=== PATIENT | female | born 1950 | race Caucasian/White ===

== ENCOUNTER → 2016-05-31 | Outpatient (CLI) | payer MEDICARE ==
[~2016-05-31] MED LIST: AMLO5TAB2 PO; ATOR1TAB18 PO; CELE-19 PO; COUM2.5T11 PO; FLUO20CA8 PO; LEVO100T5 PO; LISI10TA4 PO; LOSA25TA8 PO; LYRI75CA PO; MULTCAP PO; PERC5TAB6 PO; TYLE325T5 PO; VITA200016 PO; vitamin D OR
--- NOTE | 2016-05-31 10:57 | REPMRS ---
Patient History The patient states she had a clinical breast exam in 05/2016. Patient is postmenopausal and has history of other cancer at age 56. Family history of prostate cancer in brother at age 50 or over. 3 benign stereotatic breast biopsies of the left breast, 2008. Reductions of both breasts, 2006. Digital Woman Screen Mammo: May 31, 2016 - Exam #: [id number] Bilateral CC and MLO view(s) were taken. Technologist: Patria Lopez, Technologist Prior study comparison: May 22, 2014, digital woman screen mammo performed at [facility]. April 26, 2013, digital woman screen mammo performed at [facility]. April 04, 2012, digital woman screen mammo performed at [facility]. FINDINGS: There are scattered fibroglandular densities. There has been no change in the appearance of the mammogram from the prior studies. There are three needle biopsy marker clips projecting in the left breast as before. There is a mild amount of scattered fibroglandular density which is fairly symmetric. There is no interval development of dominant mass, architectural distortion, or clustered microcalcification suggestive of malignancy. ASSESSMENT: BI-RADS/ACR category 1 mammogram. Negative. Recommendation Routine screening mammogram in 1 year (for women over age 40). This mammogram was interpreted with the aid of an FDA-approved computer-aided dectection system. Electronically Signed By: Oscra León MD 05/31/16 1043
== END ==
LOC: M WHC 09:32
PROVIDERS: ATTEND Nurse Practitioner Family
DX: Z12.31 Encounter for screening mammogram for malignant neoplasm of breast (principal); Z78.0 Asymptomatic menopausal state; Z92.89 Personal history of other medical treatment; Z80.42 Family history of malignant neoplasm of prostate; Z98.890 Other specified postprocedural states
CPT/HCPCS: G0202; G0463

== ENCOUNTER → 2016-09-30 | Outpatient (REF) | payer MEDICARE | LOC: M LAB REF 12:07 | PROVIDERS: ATTEND Physician Assistant Medical | DX: N30.01 Acute cystitis with hematuria (principal) ==

== ENCOUNTER → 2017-02-10 | Outpatient (REF) | payer MEDICARE ==
[~2017-02-10] MED LIST changes: -ATOR1TAB18 PO; +ATOR80TA59 PO; -CELE-19 PO; +CELE1CAP4 PO; -COUM2.5T11 PO; +COUM2.5T17 PO; +PERC5TAB12 PO; -PERC5TAB6 PO
[2017-02-10 15:10] LABS: ALBUMIN 3.1 GM/DL (3.2-5.2); ALBUMIN/GLOBULIN RATIO 0.84 (1.00-1.93); ALKALINE PHOSPHATASE 98 U/L (45-117); ALT/SGPT 25 U/L (12-78); ANION GAP 6 MEQ/L (8-16); AST/SGOT 12 U/L (15-37); BILIRUBIN,TOTAL 0.3 MG/DL (0.2-1.0); BLOOD UREA NITROGEN 18 MG/DL (7-18); CALCIUM LEVEL 8.7 MG/DL (8.8-10.2); CARBON DIOXIDE LEVEL 27 MEQ/L (21-32); CHLORIDE LEVEL 105 MEQ/L (98-107); CHOLESTEROL LEVEL 153 MG/DL (<200); CREATININE FOR GFR 0.55 MG/DL (0.55-1.02); GLOMERULAR FILTRATION RATE > 60.0 (>45); GLUCOSE, FASTING 110 MG/DL (80-110); POTASSIUM SERUM 4.6 MEQ/L (3.5-5.1); SODIUM LEVEL 138 MEQ/L (136-145); TOTAL PROTEIN 6.8 GM/DL (6.4-8.2); TRIGLYCERIDES LEVEL 244 MG/DL (<150)
== END ==
LOC: M SFHCADAM 08:00
PROVIDERS: ATTEND Physician Assistant
DX: I10 Essential (primary) hypertension (principal); R73.09 Other abnormal glucose; E78.4 Other hyperlipidemia; M13.0 Polyarthritis, unspecified

== ENCOUNTER → 2017-06-08 | Outpatient (REF) | payer MEDICARE ==
[2017-06-08 11:36] LABS: ESTIMATED AVERAGE GLUCOSE 123 MG/DL (60-110); HEMOGLOBIN A1c 5.9 %
[2017-06-08 11:47] LABS: ALBUMIN 3.5 GM/DL (3.2-5.2); ALBUMIN/GLOBULIN RATIO 0.95 (1.00-1.93); ALKALINE PHOSPHATASE 102 U/L (45-117); ALT/SGPT 21 U/L (12-78); ANION GAP 10 MEQ/L (8-16); AST/SGOT 10 U/L (7-37); BILIRUBIN,TOTAL 0.3 MG/DL (0.2-1.0); BLOOD UREA NITROGEN 21 MG/DL (7-18); CALCIUM LEVEL 9.3 MG/DL (8.8-10.2); CARBON DIOXIDE LEVEL 27 MEQ/L (21-32); CHLORIDE LEVEL 104 MEQ/L (98-107); CREATININE FOR GFR 0.54 MG/DL (0.55-1.30); GLOMERULAR FILTRATION RATE > 60.0 (>45); GLUCOSE, FASTING 108 MG/DL (70-100); POTASSIUM SERUM 4.4 MEQ/L (3.5-5.1); SODIUM LEVEL 141 MEQ/L (136-145); TOTAL PROTEIN 7.2 GM/DL (6.4-8.2)
== END ==
LOC: M SFHCADAM 07:49
DX: R73.09 Other abnormal glucose (principal)
CPT/HCPCS: 80053

== ENCOUNTER → 2017-06-21 | Outpatient (CLI) | payer OTHER | LOC: M ADAMS 18:26 | DX: J20.9 Acute bronchitis, unspecified (principal); J45.909 Unspecified asthma, uncomplicated; I27.21 Secondary pulmonary arterial hypertension | CPT/HCPCS: 71046 ==

== ENCOUNTER → 2017-07-10 | Outpatient (REF) | payer OTHER | LOC: M SFHCWAGY 12:04 | DX: Z12.72 Encounter for screening for malignant neoplasm of vagina (principal); Z01.411 Encounter for gynecological examination (general) (routine) with abnormal findings (principal); R87.618 Other abnormal cytological findings on specimens from cervix uteri; Z12.12 Encounter for screening for malignant neoplasm of rectum; Z12.31 Encounter for screening mammogram for malignant neoplasm of breast; Z78.0 Asymptomatic menopausal state; Z85.42 Personal history of malignant neoplasm of other parts of uterus; Z98.890 Other specified postprocedural states | CPT/HCPCS: G0123 ==

== ENCOUNTER → 2017-07-10 | Outpatient (CLI) | payer OTHER | LOC: M WHC 09:30 | DX: Z12.31 Encounter for screening mammogram for malignant neoplasm of breast (principal); Z78.0 Asymptomatic menopausal state; Z85.42 Personal history of malignant neoplasm of other parts of uterus; Z98.890 Other specified postprocedural states | CPT/HCPCS: 77067 ==

== ENCOUNTER → 2018-01-17 | Outpatient (REF) | payer OTHER ==
[2018-01-17 20:29] LABS: MALB URINE SIEMENS 25.5 MG/L
[2018-01-17 20:48] LABS: MAU/CREAT RATIO 20.2 MCG/MG (0.0-30.0)
== END ==
LOC: M SFHCADAM 19:11
DX: E11.9 Type 2 diabetes mellitus without complications (principal)

== ENCOUNTER → 2018-01-17 | Outpatient (REF) | payer OTHER ==
[2018-01-17 14:05] LABS: ALBUMIN 3.3 GM/DL (3.2-5.2); ALBUMIN/GLOBULIN RATIO 0.92 (1.00-1.93); ALKALINE PHOSPHATASE 97 U/L (45-117); ALT/SGPT 22 U/L (12-78); ANION GAP 8 MEQ/L (8-16); AST/SGOT 11 U/L (7-37); BILIRUBIN,TOTAL 0.2 MG/DL (0.2-1.0); BLOOD UREA NITROGEN 22 MG/DL (7-18); CARBON DIOXIDE LEVEL 27 MEQ/L (21-32); CHLORIDE LEVEL 107 MEQ/L (98-107); CHOLESTEROL LEVEL 147 MG/DL (<200); CHOLESTEROL RISK RATIO 3.585 (<5); CREATININE FOR GFR 0.52 MG/DL (0.55-1.30); FREE T4 1.08 NG/DL (0.76-1.46); GLOMERULAR FILTRATION RATE > 60.0 (>45); GLUCOSE, FASTING 92 MG/DL (70-100); HDL CHOLESTEROL 41 MG/DL (>40); LDL CHOLESTEROL 71 MG/DL (<100); NON-HDL-C 106 MG/DL; POTASSIUM SERUM 5.2 MEQ/L (3.5-5.1); SODIUM LEVEL 142 MEQ/L (136-145); THYROID STIMULATING HORMONE 0.227 uIU/ML (0.358-3.740); TOTAL PROTEIN 6.9 GM/DL (6.4-8.2); TRIGLYCERIDES LEVEL 175 MG/DL (<150)
[2018-01-17 15:44] LABS: ESTIMATED AVERAGE GLUCOSE 120 MG/DL (60-110); HEMOGLOBIN A1c 5.8 %
== END ==
LOC: M SFHCADAM 07:44
DX: I10 Essential (primary) hypertension (principal); E03.9 Hypothyroidism, unspecified; E11.9 Type 2 diabetes mellitus without complications; E78.4 Other hyperlipidemia
CPT/HCPCS: 84443

== ENCOUNTER → 2018-02-04 | Outpatient (REF) | payer OTHER | LOC: M LAB REF 19:33 | DX: N30.01 Acute cystitis with hematuria (principal) | CPT/HCPCS: 87186 ==

== ENCOUNTER → 2018-03-09 | Outpatient (REF) | payer OTHER ==
[2018-03-09 13:58] LABS: FREE T4 0.94 NG/DL (0.76-1.46); THYROID STIMULATING HORMONE 0.861 uIU/ML (0.358-3.740)
== END ==
LOC: M SFHCADAM 07:59
DX: E03.9 Hypothyroidism, unspecified (principal)
CPT/HCPCS: 84443

== ENCOUNTER 2018-04-13 07:08 | Day surgery (SDC) | payer OTHER ==
[~2018-04-13] VITALS: Ht 159 cm; Wt 81.6 kg
[~2018-04-13 07:08] MED LIST changes: -AMLO5TAB2 PO; +AMLO5TAB4 PO; +DITR5TAB PO; +LEVO88TA3 PO; +LOSA25TA33 PO; -LOSA25TA8 PO; +MELO15TA28 PO; +METF500T13 PO; +VICT18IN SC
[2018-04-13] MEDS ORDERED: NS 1,000 ML IV ONE (07:45)
[2018-04-13] MEDS ORDERED: PROPOFOL 200 MG/20 ML VIAL As Ordered ONE ×2 (08:16→08:35)
--- NOTE | 2018-04-13 08:36 | ROOR ---
Patient Name: Aleja Lopez Procedure Date: 04/13/2018 8:15 AM Date of : 1950 Age: 67 Room: [facility] Gender: Female Note Status: Finalized Procedure: Total Colonoscopy to Cecum Indications: High risk colon cancer surveillance: Personal history of adenoma with villous component Providers: Bobby Vallejo MD Referring MD: LEONARD Horvath Requesting Provider: Medicines: Monitored Anesthesia Care Complications: No immediate complications. Procedure: Pre-Anesthesia Assessment: - The heart rate, respiratory rate, oxygen saturations, blood pressure, adequacy of pulmonary ventilation, and response to care were monitored throughout the procedure. The Colonoscope was introduced through the anus and advanced to the cecum, identified by appendiceal orifice and ileocecal valve. The colonoscopy was performed without difficulty. The patient tolerated the procedure well. The quality of the bowel preparation was excellent. Findings: The perianal and digital rectal examinations were normal. Non-bleeding internal hemorrhoids were found during retroflexion. The hemorrhoids were small and Grade I (internal hemorrhoids that do not prolapse). Scattered small-mouthed diverticula were found in the recto-sigmoid colon, sigmoid colon and descending colon. The exam was otherwise without abnormality on direct and retroflexion views. Impression: - Non-bleeding internal hemorrhoids. - Diverticulosis in the recto-sigmoid colon, in the sigmoid colon and in the descending colon. - The examination was otherwise normal on direct and retroflexion views. - No specimens collected. - The exam was otherwise normal to the cecum. Recommendation: - Patient has a contact number available for emergencies. The signs and symptoms of potential delayed complications were discussed with the patient. Return to normal activities tomorrow. Written discharge instructions were provided to the patient. - High fiber diet. - Discharge patient to home. - Continue present medications. - Repeat colonoscopy in 5 years for surveillance. - Return to referring physician. - The findings and recommendations were discussed with the patient's family. Bobby Vallejo MD Bobby Vallejo MD 04/13/2018 8:35:53 AM This report has been signed electronically. Number of Addenda: 0 Note Initiated On: 04/13/2018 8:15 AM Estimated Blood Loss: Estimated blood loss: none.
[2018-04-13 08:55] VITALS: BP 111/69
== END 2018-04-13 09:07 | disposition home or self-care (01) ==
LOC: M OPP 07:08
PROVIDERS: ATTEND Internal Medicine Gastroenterology
DX: K64.0 First degree hemorrhoids (principal); K57.30 Diverticulosis of large intestine without perforation or abscess without bleeding; Z86.010 Personal history of colon polyps

== ENCOUNTER → 2018-07-09 | Outpatient (CLI) | payer MEDICARE ==
[~2018-07-09] MED LIST changes: -AMLO5TAB4 PO; +AMLO5TAB6 PO; +LOSA25TA14 PO; -LOSA25TA33 PO
== END ==
LOC: M WHC 08:18
PROVIDERS: ATTEND Nurse Practitioner Family
DX: Z12.31 Encounter for screening mammogram for malignant neoplasm of breast (principal); Z53.8 Procedure and treatment not carried out for other reasons

== ENCOUNTER → 2018-07-09 | Outpatient (CLI) | payer MEDICARE | LOC: M WHC 08:08 | PROVIDERS: ATTEND Physician Assistant | DX: Z13.820 Encounter for screening for osteoporosis (principal); Z78.0 Asymptomatic menopausal state ==

== ENCOUNTER → 2018-08-01 | Outpatient (REF) | payer MEDICARE ==
[2018-08-01 10:52] LABS: ALBUMIN 3.5 GM/DL (3.2-5.2); ALT/SGPT 21 U/L (12-78); BILIRUBIN,TOTAL 0.3 MG/DL (0.2-1.0); BLOOD UREA NITROGEN 21 MG/DL (7-18); CALCIUM LEVEL 8.8 MG/DL (8.8-10.2); CARBON DIOXIDE LEVEL 29 MEQ/L (21-32); CHLORIDE LEVEL 105 MEQ/L (98-107); CREATININE FOR GFR 0.59 MG/DL (0.55-1.30); GLOMERULAR FILTRATION RATE > 60.0 (>45); GLUCOSE, FASTING 99 MG/DL (70-100); SODIUM LEVEL 140 MEQ/L (136-145); TOTAL PROTEIN 7.1 GM/DL (6.4-8.2)
== END ==
LOC: M SFHCADAM 07:41
PROVIDERS: ATTEND Physician Assistant
DX: E11.9 Type 2 diabetes mellitus without complications (principal)

== ENCOUNTER → 2018-08-24 | Outpatient (CLI) | payer MEDICARE ==
--- NOTE | 2018-08-24 10:15 | REP ---
THYROID ULTRASOUND: Real-time sonographic evaluation of the thyroid was performed. Thyroid lobes are normal in size, right slightly larger than left. The right lobe measures 3.7 x 1.0 x 0.7 cm and left lobe 3.9 x 0.8 x 0.5 cm. No cystic or solid nodule is seen. IMPRESSION: No abnormality identified. Electronically Signed by Partha Moraes MD 08/27/2018 01:29 P
== END ==
LOC: M RAD 08:53
PROVIDERS: ATTEND Physician Assistant
DX: R13.10 Dysphagia, unspecified (principal); E07.89 Other specified disorders of thyroid

== ENCOUNTER 2018-09-28 11:07 | Day surgery (SDC) | payer MEDICARE ==
[~2018-09-28] VITALS: Ht 157.5 cm; Wt 84.4 kg
[~2018-09-28 11:07] MED LIST changes: +NS 1,000 ML IV ONE
[2018-09-28] MEDS ORDERED: LIDOCAINE 2% INJ 100 MG/5 ML SDV (FOR ANES.) As Ordered ONE (12:16)
[2018-09-28] MEDS ORDERED: PROPOFOL 200 MG/20 ML VIAL As Ordered ONE (12:16)
--- NOTE | 2018-09-28 13:38 | ROOR ---
Patient Name: Aleja Lopez Procedure Date: 09/28/2018 1:00 PM Date of : 1950 Age: 67 Room: [facility] Gender: Female Note Status: Finalized Procedure: Upper GI endoscopy + Dilatation Indications: Dysphagia Providers: Bobby Vallejo MD Referring MD: LEONARD Horvath Requesting Provider: Medicines: Monitored Anesthesia Care Complications: No immediate complications. Procedure: Pre-Anesthesia Assessment: - The heart rate, respiratory rate, oxygen saturations, blood pressure, adequacy of pulmonary ventilation, and response to care were monitored throughout the procedure. The Endoscope was introduced through the mouth, and advanced to the second part of duodenum. The upper GI endoscopy was accomplished without difficulty. The patient tolerated the procedure well. Findings: The Z-line was regular and was found 40 cm from the incisors. The scope was withdrawn. Dilation was performed with a Cheema dilator with no resistance at 46 Fr. The dilation site was examined following endoscope reinsertion and showed no change. No other significant abnormalities were identified in a careful examination of the stomach. The exam of the duodenum was otherwise normal. The exam was otherwise without abnormality. Impression: - Z-line regular, 40 cm from the incisors. Dilated. - The examination was otherwise normal. - No specimens collected. - The examination was otherwise normal. Recommendation: - Patient has a contact number available for emergencies. The signs and symptoms of potential delayed complications were discussed with the patient. Return to normal activities tomorrow. Written discharge instructions were provided to the patient. - Discharge patient to home. - Follow an antireflux regimen. - Continue present medications. - Return to referring physician. - The findings and recommendations were discussed with the patient's family. Bobby Vallejo MD Bobby Vallejo MD 09/28/2018 1:37:48 PM Electronically signed by Bobby Vallejo MD Number of Addenda: 0 Note Initiated On: 09/28/2018 1:00 PM Estimated Blood Loss: Estimated blood loss: none.
[2018-09-28 13:45] VITALS: BP 135/76
== END 2018-09-28 13:58 | disposition home or self-care (01) ==
LOC: M OPP 11:07
PROVIDERS: ATTEND Internal Medicine Gastroenterology
DX: R13.10 Dysphagia, unspecified (principal)

== ENCOUNTER → 2019-05-03 | Outpatient (REF) | payer MEDICARE ==
[~2019-05-03] MED LIST changes: +FLUO20CA20 PO; -FLUO20CA8 PO; -NS 1,000 ML IV ONE
[2019-05-03 12:57] LABS: HEMATOCRIT 38.2 % (36.0-47.0); MEAN CORPUSCULAR HEMOGLOBIN 26.6 pg (27.0-33.0); MEAN CORPUSCULAR HGB CONC 28.8 g/dl (32.0-36.5); MEAN CORPUSCULAR VOLUME 92.5 fl (80.0-96.0); PLATELET COUNT, AUTOMATED 388 10^3/uL (150-450); RED BLOOD COUNT 4.13 10^6/uL (4.00-5.40); WHITE BLOOD COUNT 8.2 10^3/uL (4.0-10.0)
[2019-05-03 13:22] LABS: HEMOGLOBIN A1c 6.5 %
[2019-05-03 13:42] LABS: ALBUMIN 3.2 GM/DL (3.2-5.2); ALT/SGPT 16 U/L (12-78); BILIRUBIN,TOTAL 0.2 MG/DL (0.2-1.0); BLOOD UREA NITROGEN 22 MG/DL (7-18); CALCIUM LEVEL 8.6 MG/DL (8.8-10.2); CARBON DIOXIDE LEVEL 24 MEQ/L (21-32); CHLORIDE LEVEL 105 MEQ/L (98-107); CHOLESTEROL LEVEL 158 MG/DL (<200); CHOLESTEROL RISK RATIO 3.434 (<5); CREATININE FOR GFR 0.65 MG/DL (0.55-1.30); FREE T4 1.06 NG/DL (0.76-1.46); GLOMERULAR FILTRATION RATE > 60.0 (>39); GLUCOSE, FASTING 111 MG/DL (70-100); HDL CHOLESTEROL 46 MG/DL (>40); LDL CHOLESTEROL 80 MG/DL (<100); NON-HDL-C 112 MG/DL; POTASSIUM SERUM 4.7 MEQ/L (3.5-5.1); SODIUM LEVEL 138 MEQ/L (136-145); TOTAL PROTEIN 6.8 GM/DL (6.4-8.2); TRIGLYCERIDES LEVEL 158 MG/DL (<150)
[2019-05-03 20:05] LABS: CREATININE, URINE 38.5 MG/DL; MALB URINE SIEMENS 5.1 MG/L; MAU/CREAT RATIO 13.2 MCG/MG (0.0-30.0)
== END ==
LOC: M SFHCADAM 08:01
PROVIDERS: ATTEND Physician Assistant
DX: E11.9 Type 2 diabetes mellitus without complications (principal); I10 Essential (primary) hypertension; E03.9 Hypothyroidism, unspecified; E78.49 Other hyperlipidemia

== ENCOUNTER 2019-06-26 10:19 | Emergency (ER) | payer MEDICARE ==
[2019-06-26] MEDS ORDERED: NAPR220C14 PO (10:35)
[2019-06-26] MEDS ORDERED: NS 500 ML IV ONE (11:00)
[2019-06-26] MEDS ORDERED: MORPHINE 4 MG/ML 1ML VIAL/SYRINGE (J2270) IV ONE (11:00)
[2019-06-26] MEDS ORDERED: MORPHINE 4 MG/ML 1ML VIAL/SYRINGE (J2270) IM ONE (11:30)
--- NOTE | 2019-06-26 11:37 | REP ---
CT study of the cervical spine without contrast: History: Trauma. Technique: Helical scanning is acquired and overlapping 2 mm high resolution axial images were generated and reviewed at bone and soft tissue window settings. Coronal and sagittal multiplanar re-formations images are generated. CT findings: There is no evidence of cervical spine element fracture. No skull base fracture is seen. Cervical vertebral body heights are preserved. Alignment is normal. There is straightening of the normal cervical lordosis. Degenerative disc disease is noted most pronounced at C5-6 and C6-7. There are osteoarthritic changes at C1-2. Facet joints are normally aligned bilaterally at each cervical level on multiplanar re-formations images. There is no evidence of intraspinal or paraspinal hematoma. No extra vertebral abnormality is seen. Carotid artery vascular calcifications noted. Impression: Degenerative spondylosis changes. Otherwise negative CT study of the cervical spine without contrast. No fracture seen. Electronically Signed by Raimundo León MD 06/26/2019 11:28 A
--- NOTE | 2019-06-26 12:01 | REP ---
CT LUMBAR SPINE WITHOUT CONTRAST: HISTORY: Trauma. FINDINGS: Lumbar vertebral body heights are preserved. Alignment is normal. There is no evidence of fracture or collapse. There is no evidence of spondylolysis or spondylolisthesis. There are degenerative disc changes at L2-3 and L3-4 and to some degree L5-S1 and L4-5. There is no evidence of posterior element fracture. There is facet hypertrophy bilaterally at L5-S1 and to a lesser extent at L4-5. No intraspinal or paraspinal hematoma is appreciated. There is central disc bulging at L4-5. No significant extra spinal abnormality is seen. The visualized sacrum appears intact. IMPRESSION: No traumatic abnormality noted. Degenerative spondylosis changes. Electronically Signed by Raimundo León MD 06/26/2019 07:35 P
--- NOTE | 2019-06-26 12:05 | REP ---
CT BRAIN WITHOUT CONTRAST: CT brain performed without IV contrast. There is mild atrophy. There is no midline shift or mass effect. There are minor periventricular lucencies in the white matter compatible with mild chronic small vessel ischemic changes. There is no acute intracranial hemorrhage or extra-axial fluid collection. No skull fracture is seen. Visualized paranasal sinuses demonstrate no abnormal opacification. IMPRESSION: No evidence of acute bleed or fracture. Electronically Signed by Partha Moraes MD 06/26/2019 03:26 P
[2019-06-26 14:00] VITALS: BP 112/59
[2019-06-26] MEDS ORDERED: ONDA4TAB6 PO (14:07)
--- NOTE | 2019-06-26 14:38 | REP ---
RIGHT HUMERUS, TWO VIEWS: There is no evidence of an acute fracture, dislocation or intrinsic bone disease. IMPRESSION: No fracture or dislocation. Electronically Signed by Partha Moraes MD 06/26/2019 03:26 P
--- NOTE | 2019-06-26 14:41 | REP ---
RIGHT FEMUR AP AND LATERAL: AP and lateral views of the right femur. There is no acute fracture or dislocation. Total knee prosthesis is noted in place, in position with no abnormal adjacent osseous disruption. IMPRESSION: No acute fracture or dislocation. Electronically Signed by Partha Moraes MD 06/26/2019 03:27 P
== END 2019-06-26 14:15 | disposition home or self-care (01) ==
LOC: EDBD 10:19 → M ED 10:19
DX: R51 Headache (principal); S40.021A Contusion of right upper arm, initial encounter; S80.11XA Contusion of right lower leg, initial encounter; W10.8XXA Fall (on) (from) other stairs and steps, initial encounter; Y92.018 Other place in single-family (private) house as the place of occurrence of the external cause; Z79.899 Other long term (current) drug therapy; Z79.890 Hormone replacement therapy; Z79.84 Long term (current) use of oral hypoglycemic drugs; J30.89 Other allergic rhinitis; Z91.018 Allergy to other foods
CPT/HCPCS: 70450; 72125; 72131; 73060; 73552; 96361; 96374; 99284; J2270

== ENCOUNTER → 2020-02-20 | Outpatient (REF) | payer MEDICARE ==
[~2020-02-20] MED LIST changes: +AMLO1TAB24 PO; -AMLO5TAB6 PO; +NAPR220C14 PO; +ONDA4TAB6 PO
[2020-02-20 13:02] LABS: HEMOGLOBIN A1c 6.3 %
[2020-02-20 13:23] LABS: ALBUMIN 3.3 GM/DL (3.2-5.2); ALT/SGPT 17 U/L (12-78); BILIRUBIN,TOTAL 0.3 MG/DL (0.2-1.0); BLOOD UREA NITROGEN 17 MG/DL (7-18); CALCIUM LEVEL 9.8 MG/DL (8.8-10.2); CARBON DIOXIDE LEVEL 29 MEQ/L (21-32); CHLORIDE LEVEL 105 MEQ/L (98-107); CREATININE FOR GFR 0.63 MG/DL (0.55-1.30); GLOMERULAR FILTRATION RATE > 60.0 (>39); GLUCOSE, FASTING 99 MG/DL (70-100); POTASSIUM SERUM 5.1 MEQ/L (3.5-5.1); SODIUM LEVEL 138 MEQ/L (136-145); TOTAL PROTEIN 7.3 GM/DL (6.4-8.2)
== END ==
LOC: M SFHCADAM 08:11
PROVIDERS: ATTEND Physician Assistant
DX: E11.9 Type 2 diabetes mellitus without complications (principal)

== ENCOUNTER → 2020-04-02 | Outpatient (REF) | payer MEDICARE ==
[2020-04-02 14:36] LABS: C REACTIVE PROTEIN QUANTITATIV 1.97 MG/DL (0.00-0.30); FOLATE > 24.0 NG/ML; VITAMIN B12 LEVEL 276 PG/ML
== END ==
LOC: M SFHCADAM 08:54
PROVIDERS: ATTEND Physician Assistant
DX: R51.9 Headache, unspecified (principal)

== ENCOUNTER 2020-04-29 22:28 | Emergency (ER) | payer MEDICARE ==
[~2020-04-29] VITALS: Ht 157.5 cm; Wt 83.6 kg
[2020-04-29] MEDS ORDERED: PERCOCET 5MG/325MG TAB PO ONE (23:00)
[2020-04-30] MEDS ORDERED: NORC1TAB7 PO (00:04)
--- NOTE | 2020-04-30 00:08 | REPVR ---
PROCEDURE INFORMATION: Exam: XR Left Knee Exam date and time: 04/29/2020 10:53 PM Age: 69 years old Clinical indication: Other: Fall TECHNIQUE: Imaging protocol: XR Left knee. Views: 4 or more views. COMPARISON: CR Knee, Ap, Lat 07/20/2015 12:43 PM FINDINGS: Bones/joints: Frontal and lateral views demonstrate appropriate alignment of the knee, with cemented arthroplasty components appropriately positioned. No abnormal lucency at the interface between hardware and poarch bone. No periprosthetic fracture. Soft tissues: Mild subcutaneous soft tissue swelling anteriorly. IMPRESSION: No acute fracture, osseous malalignment or periprosthetic complication Electronically signed by: Emil Weeks On 04/30/2020 00:08:38 AM
[2020-04-30] MEDS ORDERED: NORCO 5/325MG TABLET (BULK FOR ED) PO ONE (00:15)
[2020-04-30 00:32] VITALS: BP 130/71
== END 2020-04-30 00:42 | disposition home or self-care (01) ==
LOC: M ED 22:28
DX: S83.92XA Sprain of unspecified site of left knee, initial encounter (principal); W18.30XA Fall on same level, unspecified, initial encounter; Y92.098 Other place in other non-institutional residence as the place of occurrence of the external cause; Y93.01 Activity, walking, marching and hiking; Y99.8 Other external cause status; Z98.890 Other specified postprocedural states; Z96.653 Presence of artificial knee joint, bilateral; I10 Essential (primary) hypertension; E07.9 Disorder of thyroid, unspecified; Z91.048 Other nonmedicinal substance allergy status; Z91.018 Allergy to other foods; Z79.899 Other long term (current) drug therapy; Z79.84 Long term (current) use of oral hypoglycemic drugs

== ENCOUNTER → 2020-06-04 | Outpatient (CLI) | payer MEDICARE ==
[~2020-06-04] MED LIST changes: +LISI10TA22 PO; -LISI10TA4 PO; +NORC1TAB7 PO
--- NOTE | 2020-06-04 14:27 | REP ---
INDICATION: PRESENCE OF LT ART KNEE JOINT. COMPARISON: Comparison CT study May 12, 2020. Comparison radiographs April 29, 2020. TECHNIQUE: 22.0 mCi of technetium 99 M MDP is injected and 3 phase imaging of the knees is acquired in the usual fashion. FINDINGS: Anterior and posterior flow study shows an area of medial hyperemia in the region of the left knee distal femoral condyle. Blood pool images demonstrate a curvilinear area of intensely increased uptake in the medial femoral condyle of the left knee. Delayed scan images demonstrate intense uptake in the medial femoral condyle and some fairly intense uptake in the region of the fibular head or proximal tibiofibular joint. The medial uptake corresponds with the fracture fragment seen along the medial femoral condyle on CT study. Photopenia associated with bilateral knee arthroplasty components are seen. No other abnormal focal uptake. IMPRESSION: Focally increased uptake in all 3 phases of the study in the medial femoral condyle region of the left knee corresponding with the site of the fracture fragments seen on CT study. There is also increased uptake in the proximal fibular head or tibiofibular articulation. Also left-sided. Photopenia associated with bilateral knee arthroplasty components. <Electronically signed by Oscar León > 06/04/20 [id number]
== END ==
LOC: M RAD 08:07
PROVIDERS: ATTEND Physician Assistant
DX: Z96.652 Presence of left artificial knee joint (principal)
CPT/HCPCS: 78315; A9503

== ENCOUNTER → 2020-08-12 | Outpatient (CLI) | payer MEDICARE ==
--- NOTE | 2020-08-12 12:08 | REPMRS ---
Patient History The patient states she had a clinical breast exam in 07/2020 Family history of prostate cancer at age 50 or over in brother. 3 benign stereotatic breast biopsies of the left breast, 2008. Reductions of both breasts, 2006. Digital Woman Screen Mammo: August 12, 2020 - Exam #: [id number] Bilateral CC and MLO view(s) were taken. Technologist: Deena Andujar, Technologist Prior study comparison: July 16, 2018, bilateral digital mammo screening bilat, performed at [facility]. July 10, 2017, digital woman screen mammo performed at [facility]. May 31, 2016, digital woman screen mammo performed at [facility]. FINDINGS: The breast tissue is almost entirely fat. The Volpara volumetric breast density category is: A. There are 3 needle biopsy marker clips in the left breast.There is a stable well-circumscribed 7 mm nodule inferiorly in the left breast at approximately 6 o'clock unchanged from prior studies. There has been no change in the appearance of the mammogram from the prior studies. There is no interval development of dominant mass, architectural distortion, or grouped microcalcification typical of malignancy. 3-D tomosynthesis shows no additional findings. Assessment: BI-RADS/ACR category 2 mammogram. Benign Findings. Recommendation Routine screening mammogram of both breasts in 1 year (for women over age 40). This patient's [facility] Lifetime Breast Cancer RIsk is estimated at 4.3 %. This mammogram was interpreted with the aid of an FDA-approved computer-aided dectection system. Electronically Signed By: Oscar León MD 08/12/20 7586
== END ==
LOC: M WHC 07:59
PROVIDERS: ATTEND Nurse Practitioner Women's Health
DX: Z12.31 Encounter for screening mammogram for malignant neoplasm of breast (principal); Z86.018 Personal history of other benign neoplasm; Z98.890 Other specified postprocedural states; N63.25 Unspecified lump in the left breast, overlapping quadrants

== ENCOUNTER 2020-12-19 12:48 | Emergency (ER) | payer MEDICARE ==
[~2020-12-19] VITALS: Ht 157.5 cm; Wt 84.8 kg
[2020-12-19 12:49] VITALS: BP 128/64
[2020-12-19] MEDS ORDERED: ACETAMINOPHEN 325 MG TAB PO ONE (15:15)
[2020-12-19] MEDS ORDERED: METH-1164 PO (15:19)
[2020-12-19] MEDS ORDERED: methocarbamoL 500 MG TAB PO ONE (15:25)
== END 2020-12-19 15:56 | disposition home or self-care (01) ==
LOC: M ED 12:48
DX: S43.421A Sprain of right rotator cuff capsule, initial encounter (principal); S46.011A Strain of muscle(s) and tendon(s) of the rotator cuff of right shoulder, initial encounter; R07.89 Other chest pain; X50.0XXA Overexertion from strenuous movement or load, initial encounter; Y92.9 Unspecified place or not applicable; Y93.89 Activity, other specified; Y99.9 Unspecified external cause status; Z79.899 Other long term (current) drug therapy; Z91.89 Other specified personal risk factors, not elsewhere classified; Z91.018 Allergy to other foods

== ENCOUNTER → 2021-02-15 | Outpatient (REF) | payer MEDICARE ==
[~2021-02-15] MED LIST changes: +METH-1164 PO
[2021-02-15 14:08] LABS: ALBUMIN 3.2 GM/DL (3.2-5.2); ALT/SGPT 19 U/L (12-78); BILIRUBIN,TOTAL 0.2 MG/DL (0.2-1.0); BLOOD UREA NITROGEN 21 MG/DL (7-18); CALCIUM LEVEL 9.3 MG/DL (8.8-10.2); CARBON DIOXIDE LEVEL 28 MEQ/L (21-32); CHLORIDE LEVEL 104 MEQ/L (98-107); CHOLESTEROL LEVEL 159 MG/DL (<200); CHOLESTEROL RISK RATIO 3.613 (<5); CREATININE FOR GFR 0.62 MG/DL (0.55-1.30); GLOMERULAR FILTRATION RATE > 60.0 (>39); GLUCOSE, FASTING 101 MG/DL (70-100); HDL CHOLESTEROL 44 MG/DL (>40); LDL CHOLESTEROL 75 MG/DL (<100); NON-HDL-C 115 MG/DL; POTASSIUM SERUM 5.2 MEQ/L (3.5-5.1); SODIUM LEVEL 138 MEQ/L (136-145); TOTAL PROTEIN 7.1 GM/DL (6.4-8.2); TRIGLYCERIDES LEVEL 200 MG/DL (<150)
[2021-02-15 17:27] LABS: MALB URINE SIEMENS 14.3 MG/L; MAU/CREAT RATIO 13.8 MCG/MG (0.0-30.0)
== END ==
LOC: M SFHCADAM 08:07
PROVIDERS: ATTEND Physician Assistant
DX: E11.9 Type 2 diabetes mellitus without complications (principal); I10 Essential (primary) hypertension; E03.9 Hypothyroidism, unspecified

== ENCOUNTER → 2021-03-17 | Outpatient (CLI) | payer MEDICARE ==
[~2021-03-17] MED LIST changes: +AMLO2.5T3 PO; +ATOR40TA75 PO; +FAMO40TA3 PO; +FLUO40CA PO; +METF10004 PO
== END ==
LOC: M LABSMTC 10:55
PROVIDERS: ATTEND Anesthesiology
DX: Z01.818 Encounter for other preprocedural examination (principal); Z11.52 Encounter for screening for COVID-19

== ENCOUNTER 2021-03-22 11:19 | Day surgery (SDC) | payer MEDICARE ==
[~2021-03-22] VITALS: Ht 157.5 cm; Wt 84.8 kg
[~2021-03-22 11:19] MED LIST changes: +NS 1,000 ML IV ONE
--- OUTSIDE RECORDS SUMMARY | 2021-03-22 11:23 | CCD | Continuity of Care Document ---
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 Role Phone Ana Rosa Beltran AUTM Beto Jenkins MD AUTSharath Unavailable Problems Description No Active Problems Social History Type Date Description Comments Sex Unknown ETOH Use Denies alcohol use Tobacco Use Start: Unknown Patient has never smoked Smoking Status Reviewed: 01/29/21 Patient has never smoked Allergies and adverse reactions Description No Known Drug Allergies Medications Active Medications SIG Qnty Indications Ordering Provide r Date Famotidine 40mg Tablets Noah Seaman MD Fluoxetine HCL 40mg Capsules Ana Rosa Beltran PA Amlodipine Besylate 2.5mg Tablets Ana Rosa Beltran PA Meloxicam 15mg Tablets Kathy Elliott DO Atorvastatin Calcium 40mg Tablets Ana Rosa Beltran PA Levothyroxine Sodium 88mcg Tablets Ana Rosa Beltran PA Losartan Potassium 25mg Tablets Noah Seaman MD Metformin HCL 1000mg Tablets Ana Rosa Beltran PA History Medications No Active Medications Unknown 05/2020 - 03/03/2021 Immunizations Description No Information Available Vital Signs Date Vital Result Comment 03/03/2021 9:17am Height 62.5 inches 5'2.50" Weight 185.00 lb BMI (Body Mass Index) 33.3 kg/m2 01/29/2021 12:51pm Body Temperature 96.7 F Height 62.50 inches 5'2.50" Weight 187.00 lb BMI (Body Mass Index) 33.7 kg/m2 Results Description No Information Available Procedures Date Code Description Status 01/29/2021 80790 Office/Outpatient Established Mo d MDM 30-39 Min Completed 01/29/2021 85029 X-Ray Finger(S) Two Views Comple juan alberto 01/29/2021 26276 X-Ray Wrist Complete Completed Medical Devices Description No Information Available Encounters Type Date Location Provider Dx Diagnosis Office Visit 01/29/2021 1:00p [place] Donell Woodruff MD 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, left wrist M19.031 Primary osteoarthritis, righ t wrist M79.644 Pain in right finger(s) Z96.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-joint replacement, bi lateral Assessments Date Code Description Provider 03/03/2021 M50.223 Other cervical disc displacement at C6-C7 level Armand Allen MD 03/03/2021 M47.892 Other spondylosis, cervical cr on Armand Allen MD 03/03/2021 M54.12 Radiculopathy, cervical region H amee Allen MD 01/29/2021 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, left wri st Donell Woodruff MD 01/29/2021 M19.031 Primary osteoarthritis, right wr ist Donell Woodruff MD 01/29/2021 M79.644 Pain in right finger(s) Donell Woodruff MD 01/29/2021 Z96.693 Finger-joint replacement, bilate ral Donell Woodruff MD Plan of Treatment Future Appointment(s):* 03/18/2021 10:00 am - Donell Woodruff MD at [place] 03/03/2021 - Armand Allen MD* M50.223 Other cervical disc displacement at C6-C7 level* Follow up:* with [facility] for emg results * M47.892 Other spondylosis, cervical region * M54.12 Radiculopathy, cervical region Functional Status Description No Information Available Mental Status Description No Information Available Referrals Refer to Reason for Referral Status Appt Date Raphael Lozano I, Pac EMG PER [facility] AT [facility] NO AUT H REQUIRED AND THEY HAVE A $25 COPAY UNTIL THEY MEET THERE OUT OF POCKET OF $7,750 TO SCHEDULING NT CALL REF IS DARNELL 02/01/21 Created [address] [address] [place] [address] [phone]
--- OUTSIDE RECORDS SUMMARY | 2021-03-22 11:23 | CCD | Continuity of Care Document ---
Author Author Aleja NAVARRO MD Organization Unknown Address [address] [place] [address] Phone [phone] Care Team Providers Care Magazine Designer Name Role Phone Ana Rosa Beltran AUTM Beto Jenkins MD AUTM Unavailable Problems Description No Active Problems Social History Type Date Description Comments Sex Unknown ETOH Use Occasionally consumes alcohol Tobacco Use Start: Unknown Patient has never smoked Smoking Status Reviewed: 05/04/20 Patient has never smoked Allergies, Adverse Reactions, Alerts Description No Known Drug Allergies Medications Active Medications SIG Qnty Indications Ordering Provide r Date Meloxicam 15mg Tablets 1 by mouth every day with food or milk 30tabs Donell Navarro MD 021 Tramadol HCL 50mg Tablets 1 every 4-6 hours as needed pain 15tabs S80.02xA Nikita Alexander MD 05/04/19 21 Keflex 500mg Capsules 4 tabs 1 hour prior to dental procedure [address] DO 09/30/2015 Percocet 5-325mg Tablets 1-tabs every 6 hours prn/pain 40tabs Shari Maher NP 07/29/19 16 Multi Complete Capsules po q d Unknown Fluoxetine HCL 40mg Capsules 1 by mouth every day Unknown Amlodipine Besylate 5mg Tablets 1 by mouth at bedtime Unknown Levothyroxine Sodium 100mcg Tablet s 1 by mouth every day Unknown Atorvastatin Calcium 80mg Tablets 1 by mouth every day Unknown Vitamin D2 400Unit Tablets only on monday Unknown Losartan Potassium 25mg Tablets Unknown Immunizations Description No Information Available Vital Signs Date Vital Result Comment 01/29/2021 12:51pm Body Temperature 96.7 F Height 62.50 inches 5'2.50" Weight 187.00 lb BMI (Body Mass Index) 33.7 kg/m2 05/04/2020 12:48pm Body Temperature 97.3 F Height 62.75 inches 5'2.75" Weight 192.00 lb BMI (Body Mass Index) 34.3 kg/m2 Results Description No Information Available Procedures Date Code Description Status 01/29/2021 26867 X-Ray Finger(S) Two Views Comple juan alberto 01/29/2021 62837 X-Ray Wrist Complete Completed 01/29/2021 21946 X-Ray Wrist Complete Completed Medical Devices Description No Information Available Encounters Description No Information Available Assessments Date Code Description Provider 01/29/2021 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, left wri st Donell Navarro MD 01/29/2021 M19.031 Primary osteoarthritis, right wr ist Donell Navarro MD 01/29/2021 M18.0 Bilateral primary os teoarthritis of first carpometacarpal joints Donell Navarro MD 01/29/2021 M19.041 Primary osteoarthritis, right cut[place] nd Donell Navarro MD Plan of Treatment 01/29/2021 - Donell Navarro MD* 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
--- OUTSIDE RECORDS SUMMARY | 2021-03-22 11:23 | CCD ---
Author Author [facility] Organization [facility] Address Unknown Phone Unavailable Care Team Providers Care Shredding Machine Knife Changer Name Role Phone Ana Rosa Seaman Unavailable PROBLEMS Type Condition ICD9-CM Code GEN86-KI Code Onset Dates Condition S tatus W/U Status Risk SNOMED Code Notes Problem Vitamin D deficiency E55.9 Active confirmed 33918265 Problem Essential (primary) hypertension I10 Active conf irmed 11649398 Problem Arthritis of right hip M19.90 Active confirmed 71777568 Problem Urge incontinence N39.41 Active confirmed 87 621539 Problem Recurrent sinusitis J32.9 Active confirmed 235103106 Problem 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 Active confirmed 32192629 Problem Personal history of malignant neoplasm of other parts of uterus Z85.42 Active confirmed 377493890 Problem Major depressive disorder, single episode, unspecified F32.9 Active confirmed 17785338 Problem Obesity (BMI 35.0-39.9 without comorbidity) E66.9 Active confirmed 330283494 Problem Osteoporosis without current pathological fracture, unspecified osteoporosis type M81.0 Active confirmed 37863389 Problem Current mild episode of major depressive disorder without prior episode F32.0 Active confirmed 59063910 Problem Pure hypercholesterolemia E78.00 Active confirmed 569322923 Problem Acquired absence of both cervix and uterus Z90.710 Active confirmed 867014570 Problem Dysphagia, unspecified type R13.10 Active confirmed 03561682 Problem Vitamin D deficiency, unspecified E55.9 Active con firmed 27903175 Problem Age-related osteoporosis without current pathological fracture M81.0 Active confirmed 84332717 Problem Type 2 diabetes mellitus wit hout complication, without long-term current use of insulin E11.9 Active confirmed 276326614 Problem Other hyperlipidemia E78.4 Active confirmed 90236971 Problem Hypothyroidism, unspecified E03.9 Active confirmed 02760161 Problem Gastroesophageal reflux disease without esophagitis K21.9 Active confirmed 188565332 Problem Other chronic pain G89.29 Active confirmed 8 7768629 Problem Anxiety F41.9 Active confirmed 49394272 Problem Acquired absence of ovaries, 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 A ctive confirmed 789681799 ALLERGIES Allergen (clinical drug ingredient) Drug/Non Drug Allergy do cumented on EMR Reaction Allergy Type Onset Date Status Chocolate chocolate Unknown Non Drug Allergy Active lisinopril cough Drug Allergy Active Flea powder Unknown Non Drug Allergy Active ENCOUNTERS from 1950 to 2021-02-05 Encounter Location Date Provider Diagnosis [facility] [address] [place] [address] Jan, Ana Rosa Seaman IMMUNIZATIONS Vaccine Route Administration Date Status Influenza Pharmacy Given Unknown Dec 31, 2019 Adminis tered Influenza 18 yrs & older Flublok IM Intramuscular May 17, 2019 Administered Influenza 18 yrs & older Flublok IM Intramuscular Mar 16, 2018 Administered Influenza (High Dose 65 & up) IM Intramuscular Feb 07, 2017 A dministered Pneumococcal Adult 0.5mL Pneumovax 23 IM Intramuscular Mar 09 016 Administered Pneumococcal 0.5mL Prevnar 13 IM Intramuscular Jan 23, 2015 A dministered Influenza 6mo & up Fluzone Unknown Mar 01, 2016 Lamonte whitfield SOCIAL HISTORY Tobacco Use: Social History Observation Description Date Details (start date - stop date) Never Smoker Sex Assigned At : Social History Observation Description Sex Assigned At Unknown Education: Question Answer Notes Level of Education: College one year Audit Question Answer Notes Total Score: 0 Interpretation: Alcohol Education Moravian: Question Answer Notes Moravian 21 Religious Sexual Hx: Question Answer Notes Had sex in the last 12 months (vaginal, oral, or anal)? Yes Have you ever had an STD? No with Men only Drug and Alcohol Question Answer Notes Total Score: 0 Interpretation: No problems reported Alcohol Screening: Question Answer Notes Did you have a drink containing alcohol in the past year? Ye s Points 2 Interpretation Negative How often did you have six or more drinks on one occas ion in the past year? Never (0 points) How many drinks did you have on a typica l day when you were drinking in the past year? 1 or 2 (0 points) How often did you have a drink containing alcohol in t he past year? Two to four times a month (2 points) BMI Care Goal Follow-Up Question Answer Notes Above Normal BMI Follow-Up Dietary management educatio n, guidance, and counseling, Giving encouragement to exercise Tobacco Use: Question Answer Notes Are you a: never smoker never smoker REASON FOR REFERRAL No Information VITAL SIGNS No information MEDICATIONS Medication SIG (Take, Route, Frequency, Duration) Notes Start Da te End Date Status metFORMIN HCl 1000 MG 1 tablet with meals Orally Twice a day Active Systane Ultra 0.4-0.3 % 1 drop into affected eye as needed Ophthalmic 24 time(s) a day Not-Taking Multivital Active PX Pen Needle 31G X 8 MM as directed Victoza Pen need les Daily E11.9 for 30 day(s) May, Not-Taking Meloxicam 15 MG 1 tablet Orally Once a day for 90 days Active Losartan Potassium 25 mg 1 tab(s) Orally once a day for 90 day(s) Active Fluoxetine HCl 40 MG TAKE ONE CAPSULE BY MOUTH EV GIANNI MORNING orally Daily for 90 days Active May Have - as directed Pt is under my c are and needs her diabetic needles to give herself insulin. DX:E11.9 as directed for 99 months Jun, Not-Taking Synthroid 88 MCG 1 tablet on an empty stomach in the morning Orally Once a day for 90 day(s) Active Norvasc 5 mg 1 tablet Orally Once a day for 90 days Active Famotidine 40 MG 1 tablet at bedtime Orally Once a day for 90 days Active Atorvastatin Calcium 40 MG 1/2 tab Orally Once a day for 90 day( s) Mar, Active Vitamin D 50 MCG (2000 UT) 1 tablet Orally Once a day Active Oxybutynin Chloride 5 MG 1 tablet Orally Twice a day for 90 day(s) Active PROCEDURES No Information RESULTS No Results REASON FOR VISIT Medication reason MEDICAL (GENERAL) HISTORY Type Description Date Medical History TMJ Medical History Arthritis Lumbar spine, righ t knee, hands - Follows with Orthopedics Medical History hyperlipidemia Medical History Hypothyroidism Medical History endometrial ca 02/04 radiation Steve Oates saw her until 2011 released to annual routine exams Medical History fibrocystic breast disease Medical History Pre-Diabetes Medical History anxiety Medical History depression Medical History dry eye Medical History diverticulitis Medical History CXR 09/02/14 - normal chest Medical History HTN Medical History Obesity Medical History Recurrent Sinusitis Medical History Osteoporosis per DEXA 2018 - FRAX 13/08 ( Right hip T -2.7) Surgical History D&C 1989 Surgical History wrist surgery right and left 10/02/2004 Surgical History knee surgery/ left 1993 Surgical History breast reconstruction/elizabeth. 11/04 Surgical History d&c,hysteroscopy,laparoscopy 2006 Surgical History CALI and BSO, uterine cancer 2006 Surgical History breast biopsy/ elizabeth 2008 left breast bx. benign---clips 2008 Surgical History colonoscopy-diverticultis Surgical History right foot surgery 10/09 Surgical History cholecystectomy 03/11 Surgical History colonoscopy - wilth polypect ryne (tubovillous adenoma) - repeat one year 09/05/14 Surgical History knee surgery, right replacement 10/16/14 Surgical History knee replacement left 06/2015 Surgical History EGD - Dilated - otherwise normal - no bi opsy taken 09/2018 Hospitalization History surgeries Goals Section No Information Health Concerns No Information MEDICAL EQUIPMENT No Information MENTAL STATUS No Information FUNCTIONAL STATUS No Information ASSESSMENTS No Information PLAN OF TREATMENT Medication Medication Name Sig Start Date Stop Date Meloxicam 15 MG 1 tablet Orally Once a day for 90 days Atorvastatin Calcium 40 MG 1/2 tab Orally Once a day for 90 day( s) Mar, Fluoxetine HCl 40 MG TAKE ONE CAPSULE BY MOUTH EV GIANNI MORNING orally Daily for 90 days Norvasc 5 mg 1 tablet Orally Once a day for 90 days Famotidine 40 MG 1 tablet at bedtime Orally Once a day for 90 da ys Losartan Potassium 25 mg 1 tab(s) Orally once a day for 90 day(s ) Oxybutynin Chloride 5 MG 1 tablet Orally Twice a day for 90 day( s) Synthroid 88 MCG 1 tablet on an empty stomach in the morning Orally Once a day for 90 day(s) Next Appt Details Provider Name:Ana Rosa Seaman, 2021-01 - 07:30:00 AM, [address], , [place], [address], Insurance Providers Payer Name Payer Address Payer Phone Insured Name Patient Relati onship to Insured Coverage Start Date Coverage End Date AETNA MEDICARE [employer] [address] [facility] [id number] CHALINO CASTANON self
--- OUTSIDE RECORDS SUMMARY | 2021-03-22 11:23 | CCD | Continuity of Care Document ---
Author Author Aleja ALLEN MD Organization Unknown Address [address] [place] [address] Phone [phone] Care Team Providers Care Chisel Mortiser Operator Name Role Phone Ana Rosa Beltran AUTM [...] Beltran PA Levothyroxine Sodium 88mcg Tablets Ana oRsa Beltran PA Losartan Potassium 25mg Tablets Noah [...] Information Available Procedures Date Code Description Status 03/11/2021 80631 Office/Outpatient Established Lo w MDM 20-29 Min Completed 03/03/2021 87221 Office/Outpatient New Moderate M DM 45-59 Minutes Completed 03/03/2021 48089 Nerve Conduction 13+ Studies Com pleted 03/03/2021 41749 Needle Electromyography,Complete Five Or More Muscles Studied Completed 01/29/2021 78840 Office/Outpatient Established Mo d MDM 30-39 Min Completed 01/29/2021 79204 X-Ray Finger(S) Two Views Comple juan alberto 01/29/2021 88476 X-Ray Wrist Complete Completed Medical Devices Description No Information Available Encounters Type Date Location Provider Dx Diagnosis Office Visit 03/11/2021 9:30a [place] Donell Woodruff MD 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, left wrist M19.031 Primary osteoarthritis, righ t wrist M79.644 Pain in right finger(s) Z96.693 Finger-joint replacement, bi lateral Office Visit 03/03/2021 9:00a [place] Armand Allen MD M47.892 Other spondylosis, cervical region M50.31 Other cervical disc degenera tion, high cervical region M50.320 Other cerv disc degeneration , mid-cervical rgn, unsp level M79.601 Pain in right arm M79.602 Pain in left arm R20.2 Paresthesia of skin E11.9 Type 2 diabetes mellitus wit hout complications Office Visit 01/29/2021 1:00p [place] Donell Woodruff MD 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, left wrist M19.031 Primary osteoarthritis, righ t wrist M79.644 Pain in right finger(s) Z96.693 Finger-joint replacement, bi lateral Assessments Date Code Description Provider 03/11/2021 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, left wri st Donell Woodruff MD 03/11/2021 M19.031 Primary osteoarthritis, right wr ist Donell Woodruff MD 03/11/2021 M79.644 Pain in right finger(s) Donell Woodruff MD 03/11/2021 Z96.693 Finger-joint replacement, melissa Woodruff MD 03/03/2021 M47.892 Other spondylosis, cervical cr on Armand Allen MD 03/03/2021 M50.31 Other cervical disc degeneration , high cervical region Armand Allen MD 03/03/2021 M50.320 Other cervical disc degeneration, mid-cervical region, unspecified level Armand Allen MD 03/03/2021 M79.601 Pain in right arm Armand pérez MD 03/03/2021 M79.602 Pain in left arm Armand Allen MD 03/03/2021 R20.2 Paresthesia of skin Armand zamudio MD 03/03/2021 E11.9 Type 2 diabetes mellitus without complications Armand Allen MD 01/29/2021 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, left wri st Donell Woodruff MD 01/29/2021 M19.031 Primary osteoarthritis, right wr ist Donell Woodruff MD 01/29/2021 M79.644 Pain in right finger(s) Donell Woodruff MD 01/29/2021 Z96.693 Finger-joint replacement, melissa Woodruff MD Plan of Treatment 03/03/2021 - Armand Allen MD* M47.892 Other spondylosis, cervical region * M50.31 Other cervical disc degeneration, high cervical region * M50.320 Other cervical disc degeneration, mid-cervical region, unspecified level * M79.601 Pain in right arm* Follow up:* with blb for emg results * M79.602 Pain in left arm * R20.2 Paresthesia of skin * E11.9 Type 2 diabetes mellitus without complications Functional Status Description No Information Available Mental Status Description No Information Available Referrals Refer to Reason for Referral Status Appt Date Raphael Lozano I, Pac EMG PER DARNELL AT [facility] NO AUT H REQUIRED AND THEY HAVE A $25 COPAY UNTIL THEY MEET THERE OUT OF POCKET OF $7,750 TO SCHEDULING NT CALL REF IS DARNELL 02/01/[address] [place] [address] [address] [place] [address] [phone]
--- OUTSIDE RECORDS SUMMARY | 2021-03-22 11:23 | CCD | Continuity of Care Document ---
Author Author Aleja ALLEN MD Organization Unknown Address [address] [place] [address] Phone [phone] Care Team Providers Care Lettuce Trimmer Name Role Phone Ana Rosa Beltran AUTM [...] Available Procedures Date Code Description Status 01/29/2021 47393 Office/Outpatient Established Mo d MDM 30-39 Min Completed 01/29/2021 64285 X-Ray Finger(S) Two Views Comple juan alberto 01/29/2021 41245 X-Ray Wrist Complete Completed Medical Devices Description No Information Available Encounters Type Date Location Provider Dx Diagnosis Office Visit 01/29/2021 1:00p [place] Donell Woodruff MD 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, left [...] 10:00 am - Donell Woodruff MD at [facility] 03/03/2021 - Armand Allen MD* M50.223 Other cervical disc displacement at C6-C7 level* Follow up:* with blb for emg results * M47.892 Other spondylosis, cervical region * M54.12 Radiculopathy, cervical region Functional Status Description No Information Available Mental Status Description No Information Available Referrals Refer to Reason for Referral Status Appt Date Raphael Lozano I, Pac EMG PER DARNELL AT [facility] NO AUT H REQUIRED AND THEY HAVE A $25 COPAY UNTIL THEY MEET THERE OUT OF POCKET OF $7,750 TO SCHEDULING NT CALL REF IS DARNELL 02/01/21 Created [address] [facility] [address] [place] [address] [phone]
--- OUTSIDE RECORDS SUMMARY | 2021-03-22 11:23 | CCD | Continuity of Care Document ---
Author Author Aleja VALLEJO M.D. Organization Unknown Address [address] [place] [address] Phone [phone] Care Team Providers Care Strategic Accounts Manager Name Role Phone Ana Rosa Seaman AUTM [phone] Problems Active Problems Provider Date Dysphagia Bobby Vallejo M.D. Onset: 01/27/20 21 Irritable bowel syndrome Bobby Vallejo M.D. Onset: Screening for malignant neoplasm of colon Bobby benavides M.D. Onset: 08/21/2014 Social History Type Date Description Comments Sex Unknown ETOH Use Occasionally Tobacco Use Start: Unknown Patient has never smoked Allergies and adverse reactions Description No Known Drug Allergies Medications Active Medications SIG Qnty Indications Ordering Provide r Date Multivitamin Gummies Adult Chewta bs PO qd Unknown Fluoxetine HCL 40mg Capsules PO qd Unknown Levothyroxine Sodium 100mcg Tablets PO qd Unknown Atorvastatin Calcium 20mg Tablets PO qd Unknown Oxybutynin Chloride 5mg Tablets Take One Tablet By Mouth Twice A Day Unknown Metformin HCL 500mg Tablets Take One Tablet By Mouth Twice A Day With Meals Unknown Meloxicam 15mg Tablets Take One Tablet By Mouth Every Day Unknown Aspirin Ec Low Dose 81mg Tablets DR Unknown Losartan Potassium 25mg Tablets Unknown Victoza 18mg/3ML Solution Pen-Inject Ana Rosa SeamanPUcheAUche Amlodipine Besylate 5mg Tablets Take 1 Tablet By Mouth Once Daily Unknown Immunizations Description No Information Available Vital Signs Date Vital Result Comment 01/26/2021 4:05pm Height 62.5 inches 5'2.50" Weight 186.00 lb BP Systolic 123 mmHg BP Diastolic 69 mmHg Heart Rate 79 /min BMI (Body Mass Index) 33.5 kg/m2 Weight 84.370 kg Body Temperature 96.8 F 09/21/2018 11:56am Height 62.5 inches 5'2.50" Weight 185.00 lb BP Systolic 130 mmHg BP Diastolic 74 mmHg Heart Rate 84 /min BMI (Body Mass Index) 33.3 kg/m2 Weight 83.916 kg Results Description No Information Available Procedures Date Code Description Status 01/26/2021 25169 Office/Outpatient Established Lo w MDM 20-29 Min Completed Medical Devices Description No Information Available Encounters Type Date Location Provider Dx Diagnosis Office Visit 01/26/2021 3:45p Main Office Bobby Vallejo M.D. R 13.10 Dysphagia, unspecified Assessments Date Code Description Provider 01/26/2021 R13.10 Dysphagia, unspecified Bobby Vallejo M.D. Plan of Treatment Future Appointment(s):* 03/09/2021 8:00 am - [place] at Main Office * 03/22/2021 1:15 pm - Bobby Vallejo M.D. at Main Office 01/26/2021 - Bobby Vallejo M.D.* R13.10 Dysphagia, unspecified* Comments: * 70 yo wf who presents for a h/o oropharyngeal dysphagia for 6 months. No c/o abdominal pain, weight loss, or chest pain. Pt has issues with swallowing pills. Pt had an egd + 46f sharmin dilator.Plan:1. Egd + BD.2. Informed consent. Functional Status Description No Information Available Mental Status Description No Information Available Referrals Description No Information Available
--- OUTSIDE RECORDS SUMMARY | 2021-03-22 11:23 | CCD | Continuity of Care Document ---
Author Author Aleja NAVARRO MD Organization Unknown Address [address] [place] [address] Phone [phone] Care Team Providers Care Business Investor Name Role Phone Ana Rosa Beltran AUTM Beto Jenkins MD AUTM Unavailable Problems Description No Active Problems Social History Type Date Description Comments Sex Unknown ETOH Use Denies alcohol use Tobacco Use Start: Unknown Patient has never smoked Smoking Status Reviewed: 01/29/21 Patient has never smoked Allergies and adverse reactions Description No Known Drug Allergies Medications Description No Active Medications Immunizations Description No Information Available Vital Signs Date Vital Result Comment 01/29/2021 12:51pm Body Temperature 96.7 F Height 62.50 inches 5'2.50" Weight 187.00 lb BMI (Body Mass Index) 33.7 kg/m2 05/04/2020 12:48pm Body Temperature 97.3 F Height 62.75 inches 5'2.75" Weight 192.00 lb BMI (Body Mass Index) 34.3 kg/m2 Results Description No Information Available Procedures Date Code Description Status 01/29/2021 69099 Office/Outpatient Established Mo d MDM 30-39 Min Completed 01/29/2021 52501 X-Ray Finger(S) Two Views Comple juan alberto 01/29/2021 33052 X-Ray Wrist Complete Completed Medical Devices Description No Information Available Encounters Type Date Location Provider Dx Diagnosis Office Visit 01/29/2021 1:00p [place] Donell Navarro MD 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, left wrist M19.031 Primary osteoarthritis, righ t wrist M79.644 Pain in right finger(s) Z96.693 Finger-joint replacement, bi lateral Assessments Date Code Description Provider 01/29/2021 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, left wri st Donell Navarro MD 01/29/2021 M19.031 Primary osteoarthritis, right wr ist Donell Navarro MD 01/29/2021 M79.644 Pain in right finger(s) Donell Navarro MD 01/29/2021 Z96.693 Finger-joint replacement, bilate ral Donell Navarro MD Plan of Treatment Future Appointment(s):* 03/03/2021 9:00 am - Armand Martinez MD at [place] 01/29/2021 - Donell Navarro MD* 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, left wrist * M19.031 Primary osteoarthritis, right wrist * M79.644 Pain in right finger(s) * Z96.693 Finger-joint replacement, bilateral* Follow up:* after * All * New Medication:* No Active Medications - Functional Status Description No Information Available Mental Status Description No Information Available Referrals Refer to Reason for Referral Status Appt Date Raphael Lozano I, Pac EMG PER DARNELL AT [facility] NO AUT H REQUIRED AND THEY HAVE A $25 COPAY UNTIL THEY MEET THERE OUT OF POCKET OF $7,750 TO SCHEDULING NT CALL REF IS DARNELL 02/01/21 Created [facility] [facility] [address] [place] [address] [phone]
--- OUTSIDE RECORDS SUMMARY | 2021-03-22 11:23 | CCD | Continuity of Care Document ---
Author Author Aleja NAVARRO MD Organization Unknown Address [address] [place] [address] Phone [phone] Care Team Providers Care Survey Superintendent Name Role Phone Ana Rosa Beltran AUTM [...] Available Procedures Date Code Description Status 01/29/2021 70450 X-Ray Finger(S) Two Views Comple juan alberto 01/29/2021 88629 X-Ray Wrist Complete Completed 01/29/2021 08959 X-Ray Wrist Complete Completed Medical Devices Description [...]
--- OUTSIDE RECORDS SUMMARY | 2021-03-22 11:23 | CCD ---
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 Active confirmed 09717543 Problem Urge incontinence N39.41 Active confirmed 87 026280 Problem Recurrent sinusitis J32.9 Active confirmed 403041221 Problem Obesity (BMI 35.0-39.9 without comorbidity) E66.9 Active confirmed 215319453 Problem Type 2 diabetes mellitus wit hout complication, without long-term current use of insulin E11.9 Active confirmed 941724298 Problem Other hyperlipidemia E78.4 Active confirmed 73278013 Problem Personal history of malignant neoplasm of other parts of uterus Z85.42 Active confirmed 154842385 Problem Major depressive disorder, single episode, unspecified F32.9 Active confirmed 71599589 Problem Current mild episode of major depressive disorder without prior episode F32.0 Active confirmed 48793936 Problem Pure hypercholesterolemia E78.00 Active confirmed 732493582 Problem Gastroesophageal reflux disease without esophagitis K21.9 Active confirmed 975007707 Problem Age-related osteoporosis without current pathological fracture M81.0 Active confirmed 84842433 Problem Osteoporosis without current pathological fracture, unspecified osteoporosis type M81.0 Active confirmed 93263175 Problem Hypothyroidism, unspecified E03.9 Active confirmed 84147215 Problem Overactive bladder N32.81 Active confirmed 7 54699894 Problem Dysphagia, unspecified type R13.10 Active confirmed 10753771 Problem Vitamin D deficiency, unspecified E55.9 Active con firmed 44240906 Problem Essential (primary) hypertension I10 Active conf irmed 57801534 Problem Other chronic pain G89.29 Active confirmed 8 9170778 Problem Anxiety F41.9 Active confirmed 56027856 Problem Acquired absence of ovaries, 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 A ctive confirmed 999035515 Problem Acquired absence of both cervix and uterus Z90.710 Active confirmed 213232818 ALLERGIES Allergen (clinical drug ingredient) Drug/Non Drug Allergy do cumented on EMR Reaction Allergy Type Onset Date Status Chocolate chocolate Unknown Non Drug Allergy Active lisinopril Lisinopril([facility] Code:[address]-16) cough Drug Allergy Active Flea powder Unknown Non Drug Allergy Active ENCOUNTERS from 1950 to 2021-02-23 Encounter Location Date Provider Diagnosis [address] [place] [address] Jan, Ana Rosa Seaman Encounter for immunization Z23 ; Type 2 diabetes mellitus without complication, without long-term current use of insulin E11.9 ; Anxiety F41.9 ; Essential (primary) hypertension I10 ; Hypothyroidism, unspecified E03.9 ; Overactive bladder N32.81 ; Other hyperlipidemia E78.4 ; Gastroesophageal reflux disease without esophagitis K21.9 and 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 IMMUNIZATIONS Vaccine Route Administration Date Status Moderna #1 dose COVID-19 (given elsewhere) SARSCOV2 VAC 100M CG/0.5ML IM Unknown May 28, 2020 Administered Moderna #2 dose COVID-19 (given elsewhere) SARSCOV2 VAC 100M CG/0.5ML IM Unknown Jun 24, 2020 Administered Influenza Pharmacy Given Unknown Dec 31, 2019 Adminis tered Influenza 18 yrs & older Flublok IM Intramuscular May 17, 2019 Administered Influenza 18 yrs & older Flublok IM Intramuscular Mar 16, 2018 Administered Influenza (High Dose 65 & up) IM Intramuscular Feb 07, 2017 A dministered Moderna #3 dose COVID-19 (given elsewhere) SARSCOV2 VAC 100M CG/0.5ML IM Unknown Dec 17, 2020 Administered Pneumococcal Adult 0.5mL Pneumovax 23 IM Intramuscular Mar 09 016 Administered Influenza 18 yrs & older Flublok IM Intramuscular Feb 17, 2021 Administered Pneumococcal 0.5mL Prevnar 13 IM Intramuscular [...] Notes Total Score: 0 Interpretation: Alcohol Education Roman Catholic: Question Answer Notes Roman Catholic 21 Caodaism Sexual Hx: Question Answer Notes Had sex [...] REASON FOR REFERRAL No Information VITAL SIGNS Weight 189.4 lbs Jan, Height 62 in Jan, BMI 34.64 kg/m2 Jan, Heart Rate 97 /min Jan, Respiratory Rate 18 /min Jan, Temperature 97.6 degrees Fahrenheit Jan, Oximetry 94 Jan, Blood pressure systolic 120 mm Hg Jan, Blood pressure diastolic 80 mm Hg Jan, MEDICATIONS Medication SIG (Take, Route, Frequency, Duration) Notes Start Da te End Date Status amLODIPine Besylate 2.5 MG 1 tablet Orally Once a day for 90 day s Jan, Active Famotidine 40 MG 1 tablet at bedtime Orally Once a day Active Synthroid 88 MCG 1 tablet on an empty stomach in the morning Orally Once a day for 90 day(s) Active Vitamin D 50 MCG (1999) 1 tablet Orally Once a day Active Meloxicam 15 MG 1 tablet Orally Once a day Active Atorvastatin Calcium 40 MG 1/2 tab Orally Once a day 2015 Active metFORMIN HCl 1000 MG 1 tablet with meals Orally Daily for 90 days Active Fluoxetine HCl 40 MG TAKE ONE CAPSULE BY MOUTH EVERY MORNING orally D aily Active Losartan Potassium 25 mg 1 tab(s) Orally once a day Active Multivital Active PROCEDURES from 1950 to 2021-02-23 Procedure Date Ordered Result Body Site Imm: Flublok Quadrivalent 18 years & older 0.5mL IM Influenza 19-02-20 N/A RESULTS No Results REASON FOR VISIT overdue follow up MEDICAL (GENERAL) HISTORY Type Description Date Medical History TMJ Medical History Arthritis Lumbar spine, righ t knee, hands - Follows with Orthopedics Medical History hyperlipidemia Medical History Hypothyroidism Medical History [facility] released to annual [...] No Information FUNCTIONAL STATUS No Information ASSESSMENTS Encounter Date Diagnosis Assessment Notes Treatment Notes Treatm ent Clinical Notes Jan, Encounter for immunization (ICD-10 - Z23) Jan, Type 2 diabetes mellitus wit hout complication, without long-term current use of insulin (ICD-10 - E11.9) Blood sugars very well controlled with Metformin and diet and excercise. She has trouble swallowint the large Metformin pill mundo would like to cut back to once a day which is reasonable given her good control of Blood sugars Jan, Anxiety (ICD-10 - F41.9) Jan, Essential (primary) hypertension (ICD-10 - I10) BP very well controlled. I will try to cut back her Amlodipine to 2.5 mg daily, Blood pressure is stable on meds. . Attempt to follow DASH diet (lots of fruit, vegetable and low-fat dairy, low in saturated fat). Reduce salt to less than 2.4 grams/day. Engage in aerobic activities for 30 minutes on most days. Maintain a healthy weight. Limit alcohol intake to one drink a day Jan, Hypothyroidism, unspecified (ICD-10 - E03.9) Jan, Overactive bladder (ICD-10 - N32.81) She would like to try to stop this and see how her bladder issues go Jan, Other hyperlipidemia (ICD-10 - E78.4) Jan, Gastroesophageal reflux dise ase without esophagitis (ICD-10 - K21.9) Per GI Jan, Polyarticular arthritis (ICD-10 - M13.0) Jan, Other Med list given to patient - doses of meds and reason for meds reviewed PLAN OF TREATMENT Medication Medication Name Sig Start Date Stop Date amLODIPine Besylate 2.5 MG 1 tablet Orally Once a day for 90 day s Jan, Fluoxetine HCl 40 MG TAKE ONE CAPSULE BY MOUTH EVERY MORNING ora lly Daily Losartan Potassium 25 mg 1 tab(s) Orally once a day metFORMIN HCl 1000 MG 1 tablet with meals Orally Daily for 90 da ys Atorvastatin Calcium 40 MG 1/2 tab Orally Once a day Mar, 6 Meloxicam 15 MG 1 tablet Orally Once a day Famotidine 40 MG 1 tablet at bedtime Orally Once a day Treatment Notes Assessment Notes Clinical Notes Type 2 diabetes mellitus without complic ation, without long-term current use of insulin Blood sugars very well contr olled with Metformin and diet and excercise. She has trouble swallowint the large Metformin pill mundo would like to cut back to once a day which is reasonable given her good control of Blood sugars Essential (primary) hypertension BP very well controlled. I will try to cut back her Amlodipine to 2.5 mg daily,Blood pressure is stable on meds. . Attempt to follow DASH diet (lots of fruit, vegetable and low-fat dairy, low in saturat ed fat). Reduce salt to less than 2.4 grams/day. Engage in aerobic activities for 30 minutes on most days. Maintain a healthy weight. Limit alcohol intake to one drink a day Overactive bladder She would like to tr y to stop this and see how her bladder issues go Gastroesophageal reflux disease without esophagitis Per GI Future Test Test Name Order Date HEMOGLOBIN A1c 20210505 Basic Metabolic Profile (BMP) [id number] Next Appt Details 3 Months, labs prior Reason: Provider Name:Ana Rosa Seaman, 2021-05 09:00:00 AM, [address], , [place], [address], Insurance Providers Payer Name Payer Address Payer Phone Insured Name Patient Relati onship to Insured Coverage Start Date Coverage End Date [employer] MEDICARE [employer] [address] [facility] [phone] [place] self
--- OUTSIDE RECORDS SUMMARY | 2021-03-22 11:24 | CCD ---
Author Author [facility] Address Unknown Phone Unavailable Care Team Providers Care Proposal Manager Name Role Phone Armand Martinez Unavailable Unavailable Martinez, Armand Unavailable Unavailable Martinez, Armand Unavailable Unavailable Martinez, Armand Unavailable Unavailable Martinez, Armand Unavailable Unavailable Martinez, Armand Unavailable Unavailable Martinez, Armand Unavailable Unavailable Martinez, Armand Unavailable Unavailable Martinez, Armand Unavailable Unavailable Martinez, Armand Unavailable Unavailable Martinez, Armand Unavailable Unavailable Martinez, Armand Unavailable Unavailable Martinez, Armand Unavailable Unavailable Martinez, Armand Unavailable Unavailable Martinez, Armand Unavailable Unavailable Martinez, Armand Unavailable Unavailable Martinez, Armand Unavailable Unavailable Martinez, Armand Unavailable Unavailable Martinez, Armand Unavailable Unavailable Martinez, Armand Unavailable Unavailable Martinez, Armand Unavailable Unavailable Martinez, Armand Unavailable Unavailable Martinez, Armand Unavailable Unavailable Martinez, Armand Unavailable Unavailable Martinez, Armand Unavailable Unavailable Martinez, Armand Unavailable Unavailable Martinez, Armand Unavailable Unavailable Martinez, Armand Unavailable Unavailable Martinez, Armand Unavailable Unavailable Martinez, Armand Unavailable Unavailable Martinez, Armand Unavailable Unavailable Martinez, Armand Unavailable Unavailable Martinez, Armand Unavailable Unavailable Martinez, Armand Unavailable Unavailable Martinez, Armand Unavailable Unavailable Martinez, Armand Unavailable Unavailable Martinez, Armand Unavailable Unavailable Martinez, Armand Unavailable Unavailable Martinez, Armand Unavailable Unavailable Martinez, Armand Unavailable Unavailable Martinez, Armand Unavailable Unavailable Martinez, Armand Unavailable Unavailable Martinez, Armand Unavailable Unavailable Martinez, Armand Unavailable Unavailable Juan, Armand Unavailable Unavailable Dolores Vallejo MD Unavailable Unavailable Dolores Vallejo MD Unavailable Unavailable Dolores Vallejo MD Unavailable Unavailable Dolores Vallejo MD Unavailable Unavailable Dolores Vallejo MD Unavailable Unavailable Dolores Vallejo MD Unavailable Unavailable Dolores Vallejo MD Unavailable Unavailable Dolores Vallejo MD Unavailable Unavailable Dolores Vallejo MD Unavailable Unavailable Dolores Vallejo MD Unavailable Unavailable Dolores Vallejo MD Unavailable Unavailable Dolores Vallejo MD Unavailable Unavailable Dolores Vallejo MD Unavailable Unavailable Dolores Vallejo MD Unavailable Unavailable Dolores Vallejo MD Unavailable Unavailable Dolores Vallejo MD Unavailable Unavailable Dolores Vallejo MD Unavailable Unavailable Dolores Vallejo MD Unavailable Unavailable Dolores Vallejo MD Unavailable Unavailable Dolores Vallejo MD Unavailable Unavailable Dolores Vallejo MD Unavailable Unavailable Dolores Vallejo MD Unavailable Unavailable Dolores Vallejo MD Unavailable Unavailable Dolores Vallejo MD Unavailable Unavailable Dolores Vallejo MD Unavailable Unavailable Dolores Vallejo MD Unavailable Unavailable Dolores Vallejo MD Unavailable Unavailable Dolores Vallejo MD Unavailable Unavailable Dolores Vallejo MD Unavailable Unavailable Dolores Vallejo MD Unavailable Unavailable Dolores Vallejo MD Unavailable Unavailable Dolores Vallejo MD Unavailable Unavailable Dolores Vallejo MD Unavailable Unavailable Dolores Vallejo MD Unavailable Unavailable Dolores Vallejo MD Unavailable Unavailable Dolores Vallejo MD Unavailable Unavailable Dolores Vallejo MD Unavailable Unavailable Dolores Vallejo MD Unavailable Unavailable Dolores Vallejo MD Unavailable Unavailable Dolores Vallejo MD Unavailable Unavailable Dolorse Vallejo MD Unavailable Unavailable Dolores Vallejo MD Unavailable Unavailable Dolores Vallejo MD Unavailable Unavailable Dolores Vallejo MD Unavailable Unavailable Dolores Vallejo MD Unavailable Unavailable Dolores Vallejo MD Unavailable Unavailable Dolores Vallejo MD Unavailable Unavailable Dolores Vallejo MD Unavailable Unavailable Dolores Vallejo MD Unavailable Unavailable Dolores Vallejo MD Unavailable Unavailable Dolores Vallejo MD Unavailable Unavailable LETTIERE A KESHAWN PA Unavailable Unavailable LETTIERE, A KESHAWN PA Unavailable Unavailable LETTIERE, A KESHAWN PA Unavailable Unavailable LETTIERE, A KESHAWN PA Unavailable Unavailable LETTIERE, A KESHAWN PA Unavailable Unavailable LETTIERE, A KESHAWN PA Unavailable Unavailable LETTIERE, A KESHAWN PA Unavailable Unavailable LETTIERE, A KESHAWN PA Unavailable Unavailable LETTIERE, A KESHAWN PA Unavailable Unavailable LETTIERE, A KESHAWN PA Unavailable Unavailable LETTIERE, A KESHAWN PA Unavailable Unavailable LETTIERE, A KESHAWN PA Unavailable Unavailable LETTIERE, A KESHAWN PA Unavailable Unavailable LETTIERE, A KESHAWN PA Unavailable Unavailable LETTIERE, A KESHAWN PA Unavailable Unavailable LETTIERE, A KESHAWN PA Unavailable Unavailable LETTIERE, A KESHAWN PA Unavailable Unavailable LETTIERE, A KESHAWN PA Unavailable Unavailable LETTIERE, A KESHAWN PA Unavailable Unavailable LETTIERE, A KESHAWN PA Unavailable Unavailable LETTIERE, A KESHAWN PA Unavailable Unavailable LETTIERE, A KESHAWN PA Unavailable Unavailable LETTIERE, A KESHAWN PA Unavailable Unavailable LETTIERE, A KESHAWN PA Unavailable Unavailable LETTIERE, A KESHAWN PA Unavailable Unavailable LETTIERE, A KESHAWN PA Unavailable Unavailable LETTIERE, A KESHAWN PA Unavailable Unavailable LETTIERE, A KESHAWN PA Unavailable Unavailable LETTIERE, A KESHAWN PA Unavailable Unavailable LETTIERE, A KESHAWN PA Unavailable Unavailable LETTIERE, A KESHAWN PA Unavailable Unavailable Kwon, Mar Indira PA Unavailable Unavailable Kwon, Mar Indira PA Unavailable Unavailable Kwon, Mar Indira PA Unavailable Unavailable Kwon, Mar Indira PA Unavailable Unavailable Kwon, Mar Indira PA Unavailable Unavailable Kwon, Mar Indira PA Unavailable Unavailable Kwon, Mar Indira PA Unavailable Unavailable Kwon, Mar Indira PA Unavailable Unavailable Kwon, Mar Indira PA Unavailable Unavailable Kwon, Mar Indira PA Unavailable Unavailable WoodruffAlison moreno MD Unavailable Unavailable WoodruffAlison MD Unavailable Unavailable WoodruffAlison MD Unavailable Unavailable WoodruffAlison moreno MD Unavailable Unavailable WoodruffAlison moreno MD Unavailable Unavailable WoodruffAlison moreno MD Unavailable Unavailable WoodruffAlison moreno MD Unavailable Unavailable Alison Woodruff MD Unavailable Unavailable Alison Woodruff MD Unavailable Unavailable Alison Woodruff MD Unavailable Unavailable WoodruffAlison moreno MD Unavailable Unavailable WoodruffAlison moreno MD Unavailable Unavailable WoodruffAlison moreno MD Unavailable Unavailable WoodruffAlison MD Unavailable Unavailable WoodruffAlison MD Unavailable Unavailable Woodruff, Alison Marley MD Unavailable Unavailable Woodruff, Alison Marley MD Unavailable Unavailable Woodruff, L Donell PRIEST Unavailable Unavailable Woodruff, Ailson Marley MD Unavailable Unavailable Woodruff, Alison Marley MD Unavailable Unavailable Woodruff, L Donell PRIEST Unavailable Unavailable Woodruff, Alison Marley MD Unavailable Unavailable Woodruff, Alison Marley MD Unavailable Unavailable Woodruff, Alison Marley MD Unavailable Unavailable Woodruff, Alison Marley MD Unavailable Unavailable Woodruff, L Donell PRIEST Unavailable Unavailable Woodruff, Alison Marley MD Unavailable Unavailable Woodruff, L Donell PRIEST Unavailable Unavailable Woodruff, L Donell PRIEST Unavailable Unavailable Woodruff, L Donell PRIEST Unavailable Unavailable Woodruff, L Donell PRIEST Unavailable Unavailable Woodruff, L Donell PRIEST Unavailable Unavailable Woodruff, L Donell PRIEST Unavailable Unavailable Woodruff, L Donell PRIEST Unavailable Unavailable Woodruff, Alison Marley MD Unavailable Unavailable Woodruff, L Donell PRIEST Unavailable Unavailable Woodruff, L Donell PRIEST Unavailable Unavailable Woodruff, Alison Marley MD Unavailable Unavailable Woodruff, Alison Marley MD Unavailable Unavailable Woodruff, Alison Marley MD Unavailable Unavailable Woodruff, Alison Marley MD Unavailable Unavailable Woodruff, Alison Marley MD Unavailable Unavailable Woodruff, Alison Marley MD Unavailable Unavailable Woodruff, L Donell PRIEST Unavailable Unavailable Woodruff, L Donell PRIEST Unavailable Unavailable Woodruff, L Donell PRIEST Unavailable Unavailable Woodruff, L Donell PRIEST Unavailable Unavailable Woodruff, Alison Marley MD Unavailable Unavailable Woodruff, L Donell PRIEST Unavailable Unavailable Woodruff, L Donell PRIEST Unavailable Unavailable CHINA, JORDAN PA Unavailable Unavailable CHINA, JORDAN PA Unavailable Unavailable CHINA, JORDAN PA Unavailable Unavailable CHINA, JORDAN PA Unavailable Unavailable CHINA, JORDAN PA Unavailable Unavailable CHINA, JORDAN PA Unavailable Unavailable CHINA, JORDAN PA Unavailable Unavailable CHINA, JORDAN PA Unavailable Unavailable CHINA, JORDAN PA Unavailable Unavailable CHINA, JORDAN PA Unavailable Unavailable CHINA, JORDAN PA Unavailable Unavailable CHINA, JORDAN PA Unavailable Unavailable CHINA, JORDAN PA Unavailable Unavailable CHINA, JORDAN PA Unavailable Unavailable CHINA, JORDAN PA Unavailable Unavailable CHINA, JORDAN PA Unavailable Unavailable CHINA, JORDAN PA Unavailable Unavailable CHINA, JORDAN PA Unavailable Unavailable CHINA, JORDAN PA Unavailable Unavailable CHINA, JORDAN PA Unavailable Unavailable CHINA, JORDAN PA Unavailable Unavailable CHINA, JORDAN PA Unavailable Unavailable CHINA, JORDAN PA Unavailable Unavailable CHINA, JORDAN PA Unavailable Unavailable CHINA, JORDAN PA Unavailable Unavailable [place]INA, JORDAN PA Unavailable Unavailable CHINA, JORADN PA Unavailable Unavailable [place]INA, JORDAN PA Unavailable Unavailable CHINA, JORDAN PA Unavailable Unavailable CHINA, JORDAN PA Unavailable Unavailable [place]INA, JORDAN PA Unavailable Unavailable CHINA, JORDAN PA Unavailable Unavailable CHINA, JORDAN PA Unavailable Unavailable [place]INA, JORDAN PA Unavailable Unavailable [place]INA, JORDAN PA Unavailable Unavailable CHINA, JORDAN PA Unavailable Unavailable DRAZEK, I TURNER PA Unavailable Unavailable DRAZEK, I TURNER PA Unavailable Unavailable DRAZEK, I TURNER PA Unavailable Unavailable DRAZEK, I TURNER PA Unavailable Unavailable DRAZEK, I TURNER PA Unavailable Unavailable DRAZEK, I TURNER PA Unavailable Unavailable DRAZEK, I TURNER PA Unavailable Unavailable DRAZEK, I TURNER PA Unavailable Unavailable DRAZEK, I TURNER PA Unavailable Unavailable DRAZEK, I TURNER PA Unavailable Unavailable DRAZEK, I TURNER PA Unavailable Unavailable DRAZEK, I TURNER PA Unavailable Unavailable DRAZEK, I TURNER PA Unavailable Unavailable DRAZEK, I TURNER PA Unavailable Unavailable DRAZEK, I TURNER PA Unavailable Unavailable DRAZEK, I TURNER PA Unavailable Unavailable DRAZEK, I TURNER PA Unavailable Unavailable DRAZEK, I TURNER PA Unavailable Unavailable DRAZEK, I TURNER PA Unavailable Unavailable DRAZEK, I TURNER PA Unavailable Unavailable DRAZEK, I TURNER PA Unavailable Unavailable DRAZEK, I TURNER PA Unavailable Unavailable DRAZEK, I TURNER PA Unavailable Unavailable DRAZEK, I TURNER PA Unavailable Unavailable DRAZEK, I TURNER PA Unavailable Unavailable DRAZEK, I TURNER PA Unavailable Unavailable DRAZEK, I TURNER PA Unavailable Unavailable DRAZEK, I TURNER PA Unavailable Unavailable DRAZEK, I TURNER PA Unavailable Unavailable DRAZEK, I TURNER PA Unavailable Unavailable Re-disclosure Warning The records that you are about to access may contain information from federally-assisted alcohol or drug abuse programs. If such information is present, then the following federally mandated warning applies: This information has been disclosed to you from records protected by federal confidentiality rules (42 CFR part 2). The federal rules prohibit you from making any further disclosure of this information unless further disclosure is expressly permitted by the written consent of the person to whom it pertains or as otherwise permitted by 42 CFR part 2. A general authorization for the release of medical or other information is NOT sufficient for this purpose. The Federal rules restrict any use of the information to criminally investigate or prosecute any alcohol or drug abuse patient.The records that you are about to access may contain highly sensitive health information, the redisclosure of which is protected by Article 27-F of the [facility] Public Health law. If you continue you may have access to information: Regarding HIV / AIDS; Provided by facilities licensed or operated by the [facility] Office of Mental Health; or Provided by the [facility] Office for People With Developmental Disabilities. If such information is present, then the following [facility] mandated warning applies: This information has been disclosed to you from confidential records which are protected by state law. State law prohibits you from making any further disclosure of this information without the specific written consent of the person to whom it pertains, or as otherwise permitted by law. Any unauthorized further disclosure in violation of state law may result in a fine or halfway sentence or both. A general authorization for the release of medical or other information is NOT sufficient authorization for further disc losure. Family History Family Member Name Family Member Gender Family Member Status Date o f Status Description Data Source(s) Unknown Unknown Problem MEDENT ([facility], [facility]) aunts, uncles,father Unknown Female Problem MEDENT ([facility] Unknown Female Problem MEDENT ([facility]) Unknown Female Encounters Encounter Providers Location Date Indications Data Source(s ) OFFICE OUTPATIENT VISIT 15 MINUTES Attender: Donell Woodruff MD Phys ical Therapy 03/11/2021 08:30:00 AM EST MEDENT ([facility]) Outpatient Attender: Armand Martinez Physical Therapy 03/03/2021 09:00:0 0 AM EDT MED[facility] ([facility]) Out[place] [address] [facility] [address] 02/17/2021 12:00:00 AM EDT eCW1 ([facility]) Unknown [address] [facility] [place] [address] 02/03/2021 12:00:00 AM EDT eCW1 ([facility]) Outpatient Attender: Donell Woodruff MD Physical Therapy 01/29/2021 0 1:00:00 PM EDT MEDENT ([facility]) Outpatient Attender: Bobby Vallejo MD Main Office 01/26/2021 03:45:00 PM EDT [facility] ([facility]) [place] [address] [facility] [address] 01/25/2021 12:00:00 AM EDT [facility]CW1 [facility] Outpatient Attender: KESHAWN mcmahon 01/16/2021 12:45:00 PM EDT MEDENT ([facility]) [place] [address] [facility] [place] [address] 11/25/2020 12:00:00 AM EDT eCW1 ([facility]) [place] [address] [facility] [place] [address] 11/16/2020 12:00:00 AM EDT eCW1 ([facility]) [place] [address] [facility] [address] 10/30/2020 12:00:00 AM EDT eCW1 ([facility] [place] [address] [facility] [place] [address] 10/22/2020 12:00:00 AM EDT eCW1 ([facility]) [place] [address] [facility] [place] [address] 08/18/2020 12:00:00 AM EDT eCW1 ([facility] [place] [address] [facility] [place] [address] 08/17/2020 12:00:00 AM EDT eCW1 ([facility]) Outpatient [address] [facility] [place] [address] 08/12/2020 12:00:00 AM EDT eCW1 ([facility]) [place] [address] [facility] [place] [address] 08/10/2020 12:00:00 AM EDT eCW1 ([facility]) Unknown [address] [facility] [address] 07/23/2020 12:00:00 AM EDT eCW1 ([facility]) OFFICE OUTPATIENT VISIT 15 MINUTES Attender: TURNER VALLE Phys ical Therapy 07/16/2020 03:30:00 PM EDT MEDENT ([facility]) Outpatient Attender: TURNER VALLE Physical Therapy 06/25/2020 1 2:45:00 PM EST MEDENT ([facility]) Office Visit Attender: TURNER VALLE Physical Therapy 2020 12:00:00 PM EST MEDENT ([facility]) Office Visit Attender: TURNER VALLE Physical Therapy 2020 02:40:00 PM EST MED[facility] ([facility]) [place] [address] [facility] [address] 05/08/2020 12:00:00 AM EST eCW1 ([facility]) OFFICE OUTPATIENT NEW 30 MINUTES Attender: TURNER VALLE Physic al Therapy 05/04/2020 10:30:00 AM EST MED[facility] ([facility]) Unknown [address] [facility] [address] 04/27/2020 12:00:00 AM EST eCW1 ([facility]) Unknown [address] [facility] [address] 04/17/2020 12:00:00 AM EST eCW1 ([facility]) Unknown [address] [facility] [address] 04/13/2020 12:00:00 AM EST eCW1 ([facility]) Office Visit, Est Pt., Level 3 PC [address] [place] [address] 04/09/2020 12:00:00 AM EST eCW1 ([facility]) Outpatient Attender: JORDAN hannah 03/24/2020 01:30:00 PM EST MED[facility] ([facility] [place] [address] [facility] [address] 03/06/2020 12:00:00 AM EST eCW1 ([facility]) Unknown [address] [facility] [address] 03/04/2020 12:00:00 AM EST eCW1 ([facility]) Outpatient [address] [facility] [place] [address] 02/25/2020 12:00:00 AM EDT eCW1 ([facility]) Outpatient Attender: Indira mcmahon 01/24/2020 12:15:00 PM EDT MEDENT ([facility]) Immunizations Vaccine Date Status Description Data Source(s) influenza, recombinant, quadrIvalent,injectable, prese rvative free 02/17/2021 07:49:00 AM EDT completed eCW1 ([facility]) Moderna #3 dose COVID-19 (given elsewhere) SARSCOV2 VA C 100MCG/0.5ML IM 12/17/2020 07:39:00 AM EDT completed eCW1 ([facility]) COVID-19 VACCINE Moderna 12/17/2020 12:00:00 AM EDT completed [facility] Vaccine Series Complete: YESThis Data wa s Submitted to [facility] Via [employer]. Moderna #2 dose COVID-19 (given elsewhere) SARSCOV2 VA C 100MCG/0.5ML IM 06/24/2020 07:38:00 AM EST completed eCW1 ([facility]) COVID-19 VACCINE Moderna 06/24/2020 12:00:00 AM EST completed [facility] Vaccine Series Complete: YESThis Data wa s Submitted to [facility] Via [facility]. COVID-19 VACCINE, MRNA-1273, LNP-S (MODERNA)/PF 06/24/2020 1 2:00:00 AM EST completed [facility] Moderna #1 dose COVID-19 (given elsewhere) SARSCOV2 VA C 100MCG/0.5ML IM 05/28/2020 07:37:00 AM EST completed eCW1 ([facility]) COVID-19 VACCINE Moderna 05/28/2020 12:00:00 AM EST completed [facility] Vaccine Series Complete: NOThis Data was Submitted to [facility] [employer]. COVID-19 VACCINE, MRNA-1273, LNP-S (MODERNA)/PF 05/28/2020 1 2:00:00 AM EST completed [facility] Medications Medication Brand Name Start Date Product Form Dose Route Admi nistrative Instructions Pharmacy Instructions Status Indications Reaction Description Data Source(s) Amlodipine 2.5 MG Oral Tablet amLODIPine Besylate 2.5 MG amLODIPine Besylate 2.5 MG 02/17/2021 12:00:00 AM EDT 1.0 {tablet} activ e amLODIPine Besylate 2.5 MG eCW1 ([facility]) No Active Medications 01/29/2021 12:00:00 AM EDT completed MEDENT ([facility]) Amoxicillin 875 MG Oral Tablet Amoxicillin 01/16/2021 12:00:00 AM EDT active MEDENT ([facility]) tramadol hydrochloride 50 MG Oral Tablet Tramadol HCL 05/04/2020 12:00:00 AM EST active [facility] ([facility]) meloxicam 15 MG Oral Tablet Meloxicam 05/04/2020 12:00:00 AM EST ORAL active MEDENT ([facility]) Famotidine 40 MG Oral Tablet Famotidine 40 MG 02/25/2020 12:00:00 A M EDT 1.0 {tablet_at_bedtime} active Famotidine 4 0 MG eCW1 ([facility]) Famotidine 40 MG Oral Tablet Famotidine 40 MG 02/25/2020 12:00:00 A M EDT 1.0 {tablet_at_bedtime} active Famotidine 4 0 MG eCW1 ([facility]) Famotidine 40 MG Oral Tablet Famotidine 40 MG 02/25/2020 12:00:00 A M EDT 1.0 {tablet_at_bedtime} active Famotidine 4 0 MG eCW1 ([facility]) Famotidine 40 MG Oral Tablet Famotidine 40 MG 02/25/2020 12:00:00 A M EDT 1.0 {tablet_at_bedtime} active Famotidine 4 0 MG eCW1 ([facility]) Famotidine 40 MG Oral Tablet Famotidine 40 MG 02/25/2020 12:00:00 A M EDT 1.0 {tablet_at_bedtime} active Famotidine 4 0 MG eCW1 ([facility]) Famotidine 40 MG Oral Tablet Famotidine 40 MG 02/25/2020 12:00:00 A M EDT 1.0 {tablet_at_bedtime} active Famotidine 4 0 MG eCW1 ([facility]) Famotidine 40 MG Oral Tablet Famotidine 40 MG 02/25/2020 12:00:00 A M EDT 1.0 {tablet_at_bedtime} active Famotidine 4 0 MG eCW1 ([facility]) Famotidine 40 MG Oral Tablet Famotidine 40 MG 02/25/2020 12:00:00 A M EDT 1.0 {tablet_at_bedtime} active Famotidine 4 0 MG eCW1 ([facility]) Famotidine 40 MG Oral Tablet Famotidine 40 MG 02/25/2020 12:00:00 A M EDT 1.0 {tablet_at_bedtime} active Famotidine 4 0 MG eCW1 ([facility]) Famotidine 40 MG Oral Tablet Famotidine 40 MG 02/25/2020 12:00:00 A M EDT 1.0 {tablet_at_bedtime} active Famotidine 4 0 MG eCW1 ([facility]) Famotidine 40 MG Oral Tablet Famotidine 40 MG 02/25/2020 12:00:00 A M EDT 1.0 {tablet_at_bedtime} active Famotidine 4 0 MG eCW1 ([facility]) Famotidine 40 MG Oral Tablet Famotidine 40 MG 02/25/2020 12:00:00 A M EDT 1.0 {tablet_at_bedtime} active Famotidine 4 0 MG eCW1 ([facility]) Famotidine 40 MG Oral Tablet Famotidine 40 MG 02/25/2020 12:00:00 A M EDT 1.0 {tablet_at_bedtime} active Famotidine 4 0 MG eCW1 ([facility]) doxycycline hyclate 100 MG Oral Capsule Doxycycline Hyclate 01/24/2020 12:00:00 AM EDT completed MEDENT ([facility]) Insurance Providers Payer name Policy type / Coverage type Policy ID Covered libertarian ID Covered libertarian's relationship to mendenhall Policy [place] Plan Information BS [place] Medigap Part B [id number] Family Dependent WELLNESS [place] [id number] [place] [id number] MEDICARE COMPLETE [id number] SP [id number] BS [place] Medigap Part B [id number] Family Dependent MVP (pr) Commercial [id number] [place] [id number] Self [facility] Commercial [id number] Self MEDICARE COMPLETE [id number] SP [id number] TODA[place] OPTIONS [id number] [place] [id number] [place] [id number] [place] [id number] ANSI-Medicare Part B [id number] ANSI-Medicare Part B [id number] ANSI-Medicare Part B [id number] Aetna Commercial [id number] Self [id number] ANSI-Medicare Part B [id number] ANSI-Medicare Part B [id number] ANSI-Medicare Part B [id number] ANSI-Medicare Part B [id number] ANSI-Medicare Part B [id number] ANSI-Medicare Part B [id number] [employer]etna Ppo/Pos/Nap/ Commercial [id number]. [id number] Self [id number] TOD[place]YS OPTIONS [id number] SP [id number] ANSI-Medicare Part B [id number] ANSI-Medicare Part B [id number] ANSI-Medicare Part B [id number] ANSI-Medicare Part B [id number] ANSI-Medicare Part B [id number] Today's Option Medicare Commercial [id number] Self [id number] Today's Option Medicare Commercial [id number] Self [id number] ANS-Medicare Part B [id number] Today's Option Medicare Commercial [id number] Self [id number] Today's Option Medicare Commercial [id number] Self [id number] ANSI-Medicare Part B [id number] TODAYS OPTIONS/TUN[place] O [id number] S [id number] TOD[place]YS [place] [id number] SP [id number] TODAYS OPTIONS/TUNISIAN O [id number] S [id number] Today's Option Medicare Commercial [id number] Self [id number] Today's Option Medicare Commercial [id number] Self [id number] Today's Option Medicare Commercial [id number] Self [id number] MEDICARE COMPLETE [id number] SP [id number] Today's Option Medicare Commercial [id number] Self [id number] United HLCR/Medicare Solu Commercial [id number] Self [id number] United HLCR/Medicare Solu Commercial [id number] Self [id number] United HLCR/Medicare Solu Commercial [id number] Self [id number] United HLCR/Medicare Solu Commercial [id number] Self [id number] United HLCR/Medicare Solu Commercial [id number] Self [id number] MEDICARE COMPLETE [id number] SP [id number] [facility] [id number] Self MEDICARE COMPLETE-UHC O [id number] S [id number] MEDICARE COMPLETE-UHC O [id number] S [id number] MEDICARE COMPLETE [id number] SP [id number] MEDICARE COMPLETE-UHC O [id number] S [id number] MEDICARE [id number] SP [id number] A [facility]/Medicare Commercial [id number] Self [employer]-O/P [id number] 18 [id number] [facility]-CLINIC [id number] 18 [id number] [facility] [employer]-CLINIC [id number] 18 [id number] AETNA MEDICARE [id number] SP [id number] [facility]/P [id number] 18 [id number] AETNA MEDICARE [id number] SP [id number] AETNA MEDICARE MEBSFQKK SP MEBSF QKK MEDICARE [id number] SP [id number] AETNA MEDICARE O [id number] S [id number] AETNA MEDICARE [id number] SP [id number] AETNA MEDICARE MEBSFQKK SP MEBSF QKK AETNA [facility] ALFRED TYL O [id number] S [id number] AETNA MEDICARE O MEBSFQKK [id number] S MEBSF QKK AETNA MEDICARE MEBSFQKK SP MEBSF QKK Problems, Conditions, and Diagnoses Code Display Name Description Problem Type Effective Dates Data Source(s) N32.81 [id number] Overactive bladder Problem 02/17/2021 12:00: 00 AM EDT eCW1 ([facility]) 81876292 Dysphagia Dysphagia Problem 01/26/2021 12:00:00 AM ED T MEDENT ([facility]) Z90.710 [id number] 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 Problem 08/12/2020 12:00:00 AM EDT eCW1 ([facility]) Z90.722 [id number] Acquired absence of ovaries, bilateral Pr oblem 08/12/2020 12:00:00 AM EDT eCW1 ([facility]) M81.0 [id number] Age-related osteoporosis without current pathological fracture Problem 08/12/2020 12:00:00 AM EDT eCW1 ([facility]) F41.9 [id number] Anxiety Problem 04/09/2020 12:00:00 AM ES T eCW1 ([facility]) G89.29 [id number] Other chronic pain Problem 02/25/2020 12:00: 00 AM EDT eCW1 ([facility]) Surgeries/Procedures Procedure Description Date Indications Data Source(s) OFFICE OUTPATIENT VISIT 15 MINUTES 03/11/2021 12:00:00 AM EST MEDENT ([facility] ) Needle electromyography, each extremity, with related paraspinal areas, when performed, done with nerve conduction, amplitude and latency/velocity study; complete, five or more muscles studied, innervated by three or more nerves or four or more spinal levels (list separately in addition to the code for primary procedure). 03/03/2021 12:00:00 AM EDT MEDEN T ([facility]) 63714 Nerve conduction studies 13 or more studies NEW 201203/03/2021 12:00:00 AM EDT MEDENT ([facility]) OFFICE OUTPATIENT NEW 45 MINUTES 03/03/2021 12:00:00 A M EDT MEDENT ([facility]) Imm: Flublok Quadrivalent 18 years & older 0.5mL IM Influenz a 02/17/2021 12:00:00 AM EDT eCW1 ([facility]) RADEX WRIST COMPLETE MINIMUM 3 VIEWS 01/29/2021 12:00: 00 AM EDT MEDENT ([facility] ) RADEX FINGR MINIMUM 2 VIEWS 01/29/2021 12:00:00 AM EDT MEDENT ([facility]) OFFICE OUTPATIENT VISIT 25 MINUTES 01/29/2021 12:00:00 AM EDT MEDENT ([facility] ) RADEX WRIST COMPLETE MINIMUM 3 VIEWS 01/29/2021 12:00: 00 AM EDT MEDENT ([facility]) OFFICE OUTPATIENT VISIT 15 MINUTES 01/26/2021 12:00:00 AM EDT MEDENT ([facility]) OFFICE OUTPATIENT VISIT 15 MINUTES 01/16/2021 12:00:00 AM EDT MEDENT ([facility]) RADIOLOGIC EXAMINATION KNEE 1/2 VIEWS 07/16/2020 12:00 :00 AM EDT MEDENT ([facility] ) RADIOLOGIC EXAMINATION KNEE 1/2 VIEWS 06/25/2020 12:00 :00 AM EST MEDENT ([facility] ) Results ID Date Data Source [facility] DIGITAL / DELBERT BILATERAL MAMMO SCREENING (Ultraso und if indicated) 08/12/2020 12:00:00 AM EDT eCW1 ([facility]) Name Value Range Interpretation Code Description Data Cheri rce(s) Supporting Document(s) [facility] DIGITAL / DELBERT BILAT ERAL MAMMO SCREENING (Ultrasound if indicated) [facility] ([facility]) ID Date Data Source [id number] 05/12/2020 12:00:00 AM EST [facility] Patient Name: CHALINO CASTANON [id number] [facility] Date of : 1950L[place][birth year] [place] [address] Date of Exam: [facility]#: Fax: [phone] EXAM: CT LOWER EXTREMITY W/O CONTRASTCLINICAL INFORMATION: Status post total knee replacement.Low dose 64 slice helical scanning through the left knee was obtained using2 mm increments and reconstructed in both coronal and sag ittal planes. 3Dreconstructions were also obtained. Post processing [facility].There are no prior CT's of the left knee for comparison.Even with YAMILE, there is significant detail limiting spray artifact arisingfrom the prosthesis.There is cortical discontiguity involving the proximal metaphysis of themedial femoral condyle. There is a joint effusion. The periprostheticbone mineralization appears decreased. There is no evidence of adislocation or subluxation. The alignment of the prosthetic componentsappear near anatomical.IMPRESSION:1. This examination cannot rule out prosthetic loosening. Obtain triplephase bone scan if indicated.2. There is evidence of an age undetermined fracture involving theproximal medial femoral condyle. It cannot be stated with certaintywhether or not this was present on the prior plain film examination of04/29/2020 which was also reviewed at this time. There is significantartifact from overlying clothing/bedding which is obscuring the area andobviously, the modalities are different.3. There is a knee joint effusion of uncertain etiology.4. Other findings and limitations as described above.Accredited by the [employer] in [place].LUISA Winston/Maricel abdi for referring CHALINO CASTANON to our office. Electronically Signed - LOCO FRANCIS DO 05/12/20 16:24 Name Value Range Interpretation Code Description Data Cheri rce(s) Supporting Document(s) ID Date Data Source [id number] 03/24/2020 12:00:00 AM EST [facility] Name Value Range Interpretation Code Description Data Cheri rce(s) Supporting Document(s) SARS coronavirus 2 Ag [facility] This lab was ordered by [facility] and reported by [facility]. Procedure Social History Code Duration Value Status Description Data Source(s ) Smoking 02/17/2021 12:00:00 AM EDT Never Smoker completed Never S moker eCW1 ([facility]) Smoking 01/29/2021 12:00:00 AM EDT Patient has never smoked co mpleted Patient has never smoked MEDENT ([facility]) Smoking 01/16/2021 12:00:00 AM EDT Patient has never smoked co mpleted Patient has never smoked MEDENT ([facility]) Smoking 08/12/2020 12:00:00 AM EDT Never Smoker completed Never S moker eCW1 ([facility]) Smoking 08/12/2020 12:00:00 AM EDT Never Smoker completed Never S moker eCW1 ([facility]) Smoking 08/12/2020 12:00:00 AM EDT Never Smoker completed Never S moker eCW1 ([facility]) Smoking 08/12/2020 12:00:00 AM EDT Never Smoker completed Never S moker eCW1 ([facility]) Smoking 08/12/2020 12:00:00 AM EDT Never Smoker completed Never S moker eCW1 ([facility]) Smoking 08/12/2020 12:00:00 AM EDT Never Smoker completed Never S moker eCW1 ([facility]) Smoking 08/12/2020 12:00:00 AM EDT Never Smoker completed Never S moker eCW1 ([facility]) Smoking 08/12/2020 12:00:00 AM EDT Never Smoker completed Never S moker eCW1 ([facility]) Smoking 08/12/2020 12:00:00 AM EDT Never Smoker completed Never S moker eCW1 ([facility]) Smoking 08/11/2020 12:00:00 AM EDT Never Smoker completed Never S moker eCW1 ([facility]) Smoking 04/09/2020 12:00:00 AM EST Never Smoker completed Never S moker eCW1 ([facility]) Smoking 04/09/2020 12:00:00 AM EST Never Smoker completed Never S moker eCW1 ([facility]) Smoking 04/09/2020 12:00:00 AM EST Never Smoker completed Never S moker eCW1 ([facility]) Smoking 04/09/2020 12:00:00 AM EST Never Smoker completed Never S moker eCW1 ([facility]) Smoking 04/09/2020 12:00:00 AM EST Never Smoker completed Never S moker eCW1 ([facility]) Smoking 04/09/2020 12:00:00 AM EST Never Smoker completed Never S moker eCW1 ([facility]) Smoking 02/25/2020 12:00:00 AM EDT Never Smoker completed Never S moker eCW1 ([facility]) Smoking 02/25/2020 12:00:00 AM EDT Never Smoker completed Never S moker eCW1 ([facility]) Smoking 02/25/2020 12:00:00 AM EDT Never Smoker completed Never S moker eCW1 ([facility]) Vital Signs ID Date Data Source UNK Name Value Range Interpretation Code Description Data Source(s) Body height 62.5 [in_i] 62.5 [in_i] MEDENT ([facility]) 5'2.50" Body weight 185.00 [lb_av] 185.00 [lb_av] MEDEN T ([facility]) Body mass index (BMI) [Ratio] 33.3 kg/m2 33.3 k g/m2 MEDENT ([facility] ) Body weight 189.4 [lb_av] 189.4 [lb_av] eCW1 ([facility]) Systolic blood pressure 120 mm[Hg] 120 mm[Hg] e CW1 ([facility]) Diastolic blood pressure 80 mm[Hg] 80 mm[Hg] eCW1 ([facility]) Body height 62 [in_i] 62 [in_i] eCW1 ([facility]) Body mass index (BMI) [Ratio] 34.64 kg/m2 34.64 kg/m2 eCW1 ([facility]) Heart rate 97 /min 97 /min eCW1 ([facility]) Respiratory rate 18 /min 18 /min eCW1 ([facility]) Body temperature 97.6 [degF] 97.6 [degF] eCW1 ( [facility]) Body mass index (BMI) [Ratio] 33.7 kg/m2 33.7 k g/m2 MEDENT ([facility] ) Body temperature 96.7 [degF] 96.7 [degF] MEDENT ([facility] ) Body height 62.50 [in_i] 62.50 [in_i] MEDENT ([facility] ) 5'2.50" Body weight 187.00 [lb_av] 187.00 [lb_av] MEDEN T ([facility] ) Body height 62.5 [in_i] 62.5 [in_i] [facility] 5'2.50" Diastolic blood pressure 69 mm[Hg] 69 mm[Hg] MEDENT ([facility]) Body weight 186.00 [lb_av] 186.00 [lb_av] MEDEN T ([facility]) Systolic blood pressure 123 mm[Hg] 123 mm[Hg] M EDENT ([facility]) Heart rate 79 /min 79 /min [facility]ENT ([facility]) Body mass index (BMI) [Ratio] 33.5 kg/m2 33.5 k g/m2 MEDENT ([facility]) Body weight 84.370 kg 84.370 kg [facility] ([facility]) Body temperature 96.8 [degF] 96.8 [degF] MEDENT ([facility]) Diastolic blood pressure 79 mm[Hg] 79 mm[Hg] MEDENT ([facility]) Systolic blood pressure 115 mm[Hg] 115 mm[Hg] M EDENT ([facility]) Body temperature 96.4 [degF] 96.4 [degF] MEDENT ([facility]) Oxygen saturation in Arterial blood by Pulse oximetry 98 % 98 % MEDENT ([facility]) Body weight 185.00 [lb_av] 185.00 [lb_av] MEDEN T ([facility]) Body mass index (BMI) [Ratio] 33.8 kg/m2 33.8 k g/m2 MEDENT ([facility]) Body height 62 [in_i] 62 [in_i] MEDENT ([facility]) 5'2" Heart rate 86 /min 86 /min MEDENT ([facility]) Respiratory rate 13 /min 13 /min MEDENT ( [facility], [facility]) Body weight 87.54 kg 87.54 kg eCW1 ([facility]) Body weight 193 [lb_av] 193 [lb_av] eCW1 ([facility]) Body height 62 [in_i] 62 [in_i] eCW1 ([facility]) Systolic blood pressure 108 mm[Hg] 108 mm[Hg] e CW1 ([facility]) Diastolic blood pressure 70 mm[Hg] 70 mm[Hg] eCW1 ([facility]) Body mass index (BMI) [Ratio] 35.3 kg/m2 35.3 k g/m2 W1 ([facility]) Body temperature 97.3 [degF] 97.3 [degF] MEDENT ([facility]) Body height 62.75 [in_i] 62.75 [in_i] MEDENT ([facility]) 5'2.75" Body weight 192.00 [lb_av] 192.00 [lb_av] MEDEN T ([facility]) Body mass index (BMI) [Ratio] 34.3 kg/m2 34.3 k g/m2 MEDENT ([facility]) Diastolic blood pressure 62 mm[Hg] 62 mm[Hg] eCW1 ([facility]) Body weight 190 [lb_av] 190 [lb_av] eCW1 ([facility]) Body height 62 [in_i] 62 [in_i] eCW1 ([facility]) Body mass index (BMI) [Ratio] 34.75 kg/m2 34.75 kg/m2 eCW1 ([facility]) Heart rate 105 /min 105 /min eCW1 ([facility]) Respiratory rate 18 /min 18 /min eCW1 ([facility]) Body temperature 98.9 [degF] 98.9 [degF] eCW1 ( [facility]) Systolic blood pressure 110 mm[Hg] 110 mm[Hg] e CW1 ([facility]) Diastolic blood pressure 80 mm[Hg] 80 mm[Hg] MEDENT ([facility]) Heart rate 76 /min 76 /min MEDENT ([facility]) Systolic blood pressure 126 mm[Hg] 126 mm[Hg] M EDENT ([facility]) Respiratory rate 16 /min 16 /min MEDENT ( [facility]) Oxygen saturation in Arterial blood by Pulse oximetry 99 % 99 % MEDENT ([facility]) Body temperature 98.7 [degF] 98.7 [degF] MEDENT ([facility]) Body weight 180.00 [lb_av] 180.00 [lb_av] MEDEN T ([facility]) Body height 62.5 [in_i] 62.5 [in_i] MEDENT ([facility]) 5'2.50" Body mass index (BMI) [Ratio] 32.4 kg/m2 32.4 k g/m2 MEDENT ([facility]) Body weight 193 [lb_av] 193 [lb_av] eCW1 ([facility]) Body height 62 [in_i] 62 [in_i] eCW1 ([facility]) Body mass index (BMI) [Ratio] 35.30 kg/m2 35.30 kg/m2 eCW1 ([facility]) Heart rate 88 /min 88 /min eCW1 ([facility]) Respiratory rate 18 /min 18 /min eCW1 ([facility]) Body temperature 97.6 [degF] 97.6 [degF] eCW1 ( [facility]) Systolic blood pressure 120 mm[Hg] 120 mm[Hg] e CW1 ([facility]) Diastolic blood pressure 74 mm[Hg] 74 mm[Hg] eCW1 ([facility]) Body mass index (BMI) [Ratio] 32.4 kg/m2 32.4 k g/m2 MEDENT ([facility]) Systolic blood pressure 128 mm[Hg] 128 mm[Hg] M EDENT ([facility], [facility]) Diastolic blood pressure 84 mm[Hg] 84 mm[Hg] MEDENT ([facility]) Heart rate 82 /min 82 /min MEDENT ([facility], [facility]) Respiratory rate 16 /min 16 /min MEDENT ( [facility]) Oxygen saturation in Arterial blood by Pulse oximetry 97 % 97 % MEDENT ([facility]) Body temperature 97.5 [degF] 97.5 [degF] MEDENT ([facility]) Body weight 180.00 [lb_av] 180.00 [lb_av] MEDEN T ([facility]) Body height 62.5 [in_i] 62.5 [in_i] MEDENT ([facility], [facility]) 5'2.50" Patient Treatment Plan of Care Planned Activity Planned Date Details Description Data Source (s) Amlodipine 2.5 MG Oral Tablet 02/17/2021 12:00:00 AM EDT eCW1 ([facility]) Famotidine 40 MG Oral Tablet 02/25/2020 12:00:00 AM EDT eCW1 ([facility]) Famotidine 40 MG Oral Tablet 02/25/2020 12:00:00 AM EDT eCW1 ([facility]) Famotidine 40 MG Oral Tablet 02/25/2020 12:00:00 AM EDT eCW1 ([facility])
--- OUTSIDE RECORDS SUMMARY | 2021-03-22 11:24 | CCD | Continuity of Care Document ---
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 Role Phone Augie Almendarez Publi AUTM [phone] Ana Rosa Seaman AUTM [phone] Problems Description No Information Available Social History Type Date Description Comments Sex Unknown Tobacco Use Start: Unknown Never Smoked Cigarettes ETOH Use Occasionally consumes alcohol Tobacco Use Start: Unknown Patient has never smoked Smoking Status Reviewed: 01/16/21 Patient has never smoked Allergies, Adverse Reactions, Alerts Active Allergies Criticality Reaction | Severity Comments Date NKDA Unable to assess criticality 06/01/2014 Chocolate Unable to assess criticality 01/24/2020 Dog Dander Unable to assess criticality 01/24/2020 Medications Active Medications SIG Qnty Indications Ordering Provide r Date Amoxicillin 875mg Tablets take one tablet every 12 hrs.x 10 days. 20tabs J01.10 Titus Nunes JR., M.D. 01/16/2021 Levothyroxine Sodium 88mcg Tablets 1 by mouth every day Unknown Atorvastatin Calcium 80mg qd Unknown Amlodipine Besylate 5mg Tablets qd Unknown Vitamin D 2000Unit Capsules q d Unknown Oxybutynin Chloride 5mg Tablets bid Unknown Mvi qd Unknown Metformin HCL 1000mg Tablets 1 by mouth twice a day Unknown Losartan Potassium 25mg Tablets qd Unknown Meloxicam 15mg Tablets 1 by mouth every day Unknown Tylenol 8 Hour 650mg Tablets ER prn Unknown Nasacort Allergy 24HR 55mcg/Act Ae rosol use 2 sprays in each nostril once daily Unknown Famotidine 20mg Tablets 1 twi ce a day Unknown Medications Administered in Office Medication SIG Qnty Indications Ordering Provider Date Toradol Injection Per 15 MG(30 MG) Injection José Luis Brannon 0 05/13/2017 Immunizations Description No Information Available Vital Signs Date Vital Result Comment 01/16/2021 1:57pm BP Systolic 115 mmHg BP Diastolic 79 mmHg Heart Rate 86 /min Respiratory Rate 13 /min O2 % BldC Oximetry 98 % Body Temperature 96.4 F Weight 185.00 lb Height 62 inches 5'2" BMI (Body Mass Index) 33.8 kg/m2 Pain Level 7 03/24/2020 2:46pm BP Systolic 126 mmHg BP Diastolic 80 mmHg Heart Rate 76 /min Respiratory Rate 16 /min O2 % BldC Oximetry 99 % Body Temperature 98.7 F Weight 180.00 lb Height 62.5 inches 5'2.50" BMI (Body Mass Index) 32.4 kg/m2 Pain Level 1 Results Description No Information Available Procedures Date Code Description Status 01/16/2021 90887 Office/Outpatient Established Lo w MDM 20-29 Min Completed Medical Devices Description No Information Available Encounters Type Date Location Provider Dx Diagnosis Office Visit 01/16/2021 12:45p Main Office LEONARD Parks J01 .10 Acute frontal sinusitis, unspecified Assessments Date Code Description Provider 01/16/2021 J01.10 Acute frontal sinusitis, unspeci fied LEONARD Parks Plan of Treatment 01/16/2021 - LEONARD Parks* J01.10 Acute frontal sinusitis, unspecified * New Medication:* Amoxicillin 875 mg - take one tablet every 12 hrs.x 10 days. * Comments:* rest/fluids/tylenol/time. Functional Status Description No Information Available Mental Status Description No Information Available Referrals Description No Information Available
--- OUTSIDE RECORDS SUMMARY | 2021-03-22 11:24 | CCD | Continuity of Care Document ---
Author Author Aleja MELGOZA Organization Unknown Address [address] [place] [address] [place] [address] Phone [phone] Care Team Providers Care Specifications Writer Name Role Phone Augie Almendarez Publi AUTM [phone] Ana oRsa Seaman AUTM [phone] Problems Description No Information Available Social History [...] Available Procedures Date Code Description Status 01/16/2021 37774 Office/Outpatient Established Lo w MDM 20-29 Min [...]
--- OUTSIDE RECORDS SUMMARY | 2021-03-22 11:24 | CCD ---
Author Author [facility] Organization [facility] Address Unknown Phone Unavailable Care Team Providers Care Social Psychologist Name Role Phone Ana Rosa Seaman Unavailable PROBLEMS Type Condition ICD9-CM Code [id number] Code Onset Dates Condition S tatus W/U Status Risk SNOMED Code Notes Problem Vitamin D deficiency E55.9 Active confirmed 99622879 Problem Essential (primary) hypertension I10 Active conf irmed 56260779 Problem Arthritis of right hip M19.90 Active confirmed 68498058 Problem Urge incontinence N39.41 Active confirmed 87 125998 Problem Recurrent sinusitis J32.9 Active confirmed 206426775 Problem 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 Active confirmed 57238754 Problem Personal history of malignant neoplasm of other parts of uterus Z85.42 Active confirmed 193300239 Problem Major depressive disorder, single episode, unspecified F32.9 Active confirmed 46108624 Problem Obesity (BMI 35.0-39.9 without comorbidity) E66.9 Active confirmed 701930351 Problem Osteoporosis without current pathological fracture, unspecified osteoporosis type M81.0 Active confirmed 18080339 Problem Current mild episode of major depressive disorder without prior episode F32.0 Active confirmed 02780346 Problem Pure hypercholesterolemia E78.00 Active confirmed 040069429 Problem Acquired absence of both cervix and uterus Z90.710 Active confirmed 431528333 Problem Dysphagia, unspecified type R13.10 Active confirmed 02848774 Problem Vitamin D deficiency, unspecified E55.9 Active con firmed 89901044 Problem Age-related osteoporosis without current pathological fracture M81.0 Active confirmed 29886250 Problem Type 2 diabetes mellitus wit hout complication, without long-term current use of insulin E11.9 Active confirmed 384385924 Problem Other hyperlipidemia E78.4 Active confirmed 18347974 Problem Hypothyroidism, unspecified E03.9 Active confirmed 79583461 Problem Gastroesophageal reflux disease without esophagitis K21.9 Active confirmed 615885303 Problem Other chronic pain G89.29 Active confirmed 8 5885381 Problem Anxiety F41.9 Active confirmed 08216154 Problem Acquired absence of ovaries, 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 A ctive confirmed 715014065 ALLERGIES Allergen (clinical drug ingredient) Drug/Non Drug Allergy do cumented on EMR Reaction Allergy Type Onset Date Status Chocolate chocolate Unknown Non Drug Allergy Active lisinopril cough Drug Allergy Active Flea powder Unknown Non Drug Allergy Active ENCOUNTERS from 1950 to 2021-01-26 Encounter Location Date Provider Diagnosis [facility] [address] [place] [address] Dec, Ana Rosa Seaman Type 2 diabetes mellitus without complic ation, without long-term current use of insulin E11.9 and Hypothyroidism, unspecified E03.9 IMMUNIZATIONS Vaccine Route Administration Date Status Influenza [...] Notes Total Score: 0 Interpretation: Alcohol Education Evangelical: Question Answer Notes Evangelical 21 Adventism Sexual Hx: Question Answer Notes Had sex [...] Information RESULTS No Results REASON FOR VISIT refill MEDICAL (GENERAL) HISTORY Type Description Date Medical [...] Notes Treatment Notes Treatm ent Clinical Notes Dec, Type 2 diabetes mellitus wit hout complication, without long-term current use of insulin (ICD-10 - E11.9) Dec, Hypothyroidism, unspecified (ICD-10 - E03.9) PLAN OF TREATMENT Medication Medication Name Sig [...] Orally Once a day for 90 day(s) Insurance Providers Payer Name Payer Address Payer Phone Insured Name Patient Relati onship to Insured Coverage Start Date Coverage End Date AETNA MEDICARE [employer] [address] [facility] [phone] [place]ALINO CASTANON self
[2021-03-22] MEDS ORDERED: fentaNYL 100 MCG/2 ML INJECTION (J3010) As Ordered ONE (13:07)
[2021-03-22] MEDS ORDERED: propofoL 200 MG/20 ML VIAL As Ordered ONE (13:07)
[2021-03-22] MEDS ORDERED: LIDOCAINE 2% 100MG/5ML SDV (FOR ANES.) As Ordered ONE (13:07)
--- NOTE | 2021-03-22 13:30 | ROOR ---
Patient Name: Aleja Lopez Procedure Date: 03/22/2021 1:08 PM Date of : 1950 Age: 70 Room: [facility] Gender: Female Note Status: Finalized Procedure: Upper Endoscopy + Biopsies + Cheema + Balloon Dilatation Indications: Oropharyngeal phase dysphagia, Heartburn Providers: Bobby Vallejo MD Referring MD: LEONARD Horvath Requesting Provider: Medicines: Monitored Anesthesia Care Complications: No immediate complications. Procedure: Pre-Anesthesia Assessment: - The heart rate, respiratory rate, oxygen saturations, blood pressure, adequacy of pulmonary ventilation, and response to care were monitored throughout the procedure. The Endoscope was introduced through the mouth, and advanced to the second part of duodenum. The upper GI endoscopy was accomplished without difficulty. The patient tolerated the procedure well. Findings: The Z-line was regular and was found 35 cm from the incisors. Multiple biopsies were obtained with cold forceps for evaluation to rule out Cochran's Esophagus randomly at the gastroesophageal junction. A small hiatal hernia was present. A non-obstructing Schatzki ring was found at the gastroesophageal junction. A TTS dilator was passed through the scope. Dilation with an 18-19-20 mm balloon dilator was performed to 20 mm. The scope was withdrawn. Dilation was performed in the upper third of the esophagus with a Cheema dilator with no resistance at 50 Fr. The exam was otherwise without abnormality. Impression: - Z-line regular, 35 cm from the incisors. - Small hiatal hernia. - Non-obstructing Schatzki ring. Dilated. - The examination was otherwise normal. - Multiple biopsies were obtained at the gastroesophageal junction. - Dilation performed in the upper third of the esophagus. - The examination was otherwise normal. Recommendation: - Patient has a contact number available for emergencies. The signs and symptoms of potential delayed complications were discussed with the patient. Return to normal activities tomorrow. Written discharge instructions were provided to the patient. - Resume previous diet. - Discharge patient to home. - Follow an antireflux regimen. - Continue present medications. - Await pathology results. - Telephone GI clinic for pathology results in 1 week. - Return to referring physician. - The findings and recommendations were discussed with the patient. Procedure Code(s): --- Professional --- 47416, Esophagogastroduodenoscopy, flexible, transoral; with transendoscopic balloon dilation of esophagus (less than 30 mm diameter) Diagnosis Code(s): --- Professional --- K44.9, Diaphragmatic hernia without obstruction or gangrene K22.2, Esophageal obstruction R13.12, Dysphagia, oropharyngeal phase R12, Heartburn CPT copyright 2019 [employer]. All rights reserved. The codes documented in this report are preliminary and upon information coder review may be revised to meet current compliance requirements. Bobby Vallejo MD Bobby Vallejo MD 03/22/2021 1:30:20 PM Electronically signed by Bobby Vallejo MD Number of Addenda: 0 Note Initiated On: 03/22/2021 1:08 PM Estimated Blood Loss: Estimated blood loss: none.
[2021-03-22 13:51] VITALS: BP 117/81
== END 2021-03-22 13:53 | disposition home or self-care (01) ==
LOC: M OPP 11:19
PROVIDERS: ATTEND Internal Medicine Gastroenterology
DX: K44.9 Diaphragmatic hernia without obstruction or gangrene (principal); R13.12 Dysphagia, oropharyngeal phase; R12 Heartburn; K22.2 Esophageal obstruction; E78.5 Hyperlipidemia, unspecified; E03.9 Hypothyroidism, unspecified; D64.9 Anemia, unspecified; I10 Essential (primary) hypertension; Z79.899 Other long term (current) drug therapy
CPT/HCPCS: 43249; 88305; J3010

== ENCOUNTER → 2021-04-21 | Outpatient (REF) | payer MEDICARE ==
[~2021-04-21] MED LIST changes: -NS 1,000 ML IV ONE
== END ==
LOC: M SFHCWAGY 17:01
PROVIDERS: ATTEND Advanced Practice Midwife
DX: R35.0 Frequency of micturition (principal)

== ENCOUNTER → 2021-10-15 | Outpatient (CLI) | payer MEDICARE ==
[~2021-10-15] MED LIST changes: +FLUO-96 PO; -FLUO20CA20 PO; +LOSA25TA13 PO; -LOSA25TA14 PO
== END ==
LOC: M WHC 08:38
PROVIDERS: ATTEND Physician Assistant
DX: Z12.31 Encounter for screening mammogram for malignant neoplasm of breast (principal)

== ENCOUNTER → 2021-11-09 | Outpatient (REF) | payer MEDICARE ==
[2021-11-09 16:29] LABS: HEMATOCRIT 36.6 % (36.0-47.0); HEMOGLOBIN 11.1 g/dl (12.0-15.5); MEAN CORPUSCULAR HEMOGLOBIN 26.6 pg (27.0-33.0); MEAN CORPUSCULAR HGB CONC 30.3 g/dl (32.0-36.5); MEAN CORPUSCULAR VOLUME 87.6 fl (80.0-96.0); PLATELET COUNT, AUTOMATED 439 10^3/uL (150-450); RED BLOOD COUNT 4.18 10^6/uL (4.00-5.40); WHITE BLOOD COUNT 10.7 10^3/uL (4.0-10.0)
[2021-11-09 19:48] LABS: ALBUMIN 3.3 GM/DL (3.2-5.2); ALT/SGPT 26 U/L (12-78); BILIRUBIN,TOTAL 0.2 MG/DL (0.2-1.0); BLOOD UREA NITROGEN 16 MG/DL (7-18); CALCIUM LEVEL 9.1 MG/DL (8.8-10.2); CARBON DIOXIDE LEVEL 28 MEQ/L (21-32); CHLORIDE LEVEL 103 MEQ/L (98-107); CHOLESTEROL LEVEL 171 MG/DL (<200); CHOLESTEROL RISK RATIO 3.638 (<5); CREATININE FOR GFR 0.74 MG/DL (0.55-1.30); FREE T4 1.03 NG/DL (0.76-1.46); GLOMERULAR FILTRATION RATE > 60.0 (>39); GLUCOSE, FASTING 121 MG/DL (70-100); HDL CHOLESTEROL 47 MG/DL (>40); LDL CHOLESTEROL 91 MG/DL (<100); NON-HDL-C 124 MG/DL; POTASSIUM SERUM 4.2 MEQ/L (3.5-5.1); SODIUM LEVEL 136 MEQ/L (136-145); TOTAL PROTEIN 7.1 GM/DL (6.4-8.2); TRIGLYCERIDES LEVEL 165 MG/DL (<150)
[2021-11-09 19:52] LABS: CREATININE, URINE 32.4 MG/DL; MALB URINE SIEMENS < 5.0 MG/L; MAU/CREAT RATIO 15.4 MCG/MG (0.0-30.0)
[2021-11-10 00:05] LABS: HEMOGLOBIN A1c 6.9 %
[2021-11-10 00:27] LABS: VITAMIN B12 LEVEL 393 PG/ML
[2021-11-10 00:32] LABS: FOLATE 17.2 NG/ML
== END ==
LOC: M SFHCADAM 13:31
PROVIDERS: ATTEND Physician Assistant
DX: E11.9 Type 2 diabetes mellitus without complications (principal); I10 Essential (primary) hypertension; E03.9 Hypothyroidism, unspecified

== ENCOUNTER → 2022-05-11 | Outpatient (REF) | payer MEDICARE ==
[2022-05-11 13:52] LABS: ALBUMIN 3.2 G/DL (3.2-5.2); ALKALINE PHOSPHATASE 115 U/L (46-116); ALT/SGPT 19 U/L (7.0-40); AST/SGOT 14 U/L (<34); BILIRUBIN,TOTAL 0.2 MG/DL (0.3-1.2); BLOOD UREA NITROGEN 21 MG/DL (9-23); CALCIUM LEVEL 9.3 MG/DL (8.3-10.6); CARBON DIOXIDE LEVEL 30 MMOL/L (20-31); CHLORIDE LEVEL 103 MMOL/L (98-107); CREATININE FOR GFR 0.64 MG/DL (0.55-1.30); GLOMERULAR FILTRATION RATE > 60.0 (>39); GLUCOSE, FASTING 110 MG/DL (74-106); POTASSIUM SERUM 4.8 MMOL/L (3.5-5.1); SODIUM LEVEL 138 MMOL/L (136-145); TOTAL PROTEIN 6.7 G/DL (5.7-8.2)
[2022-05-11 14:06] LABS: HEMOGLOBIN A1c 5.6 % (4.0-6.0)
== END ==
LOC: M SFHCADAM 08:32
PROVIDERS: ATTEND Physician Assistant
DX: E11.9 Type 2 diabetes mellitus without complications (principal); I10 Essential (primary) hypertension

== ENCOUNTER → 2022-07-15 | Outpatient (CLI) | payer MEDICARE | LOC: M SLEEP 20:00 | PROVIDERS: ATTEND Physician Assistant | DX: G47.33 Obstructive sleep apnea (adult) (pediatric) (principal) ==

== ENCOUNTER → 2022-09-13 | Outpatient (REF) | payer MEDICARE ==
[2022-09-13 13:37] LABS: BLOOD UREA NITROGEN 20 MG/DL (9-23); CALCIUM LEVEL 8.9 MG/DL (8.3-10.6); CARBON DIOXIDE LEVEL 26 MMOL/L (20-31); CHLORIDE LEVEL 104 MMOL/L (98-107); CREATININE FOR GFR 0.64 MG/DL (0.55-1.30); GLOMERULAR FILTRATION RATE > 60.0 (>39); GLUCOSE, FASTING 124 MG/DL (74-106); POTASSIUM SERUM 4.8 MMOL/L (3.5-5.1); SODIUM LEVEL 138 MMOL/L (136-145)
== END ==
LOC: M SFHCADAM 08:44
PROVIDERS: ATTEND Physician Assistant Medical
DX: H92.01 Otalgia, right ear (principal); R68.84 Jaw pain; R51.9 Headache, unspecified; M26.609 Unspecified temporomandibular joint disorder, unspecified side

== ENCOUNTER → 2022-09-20 | Outpatient (CLI) | payer MEDICARE ==
[~2022-09-20] MED LIST changes: +ISOVUE-370 76% 100ML VIAL As Ordered ONE
== END ==
LOC: M RAD 09:10
PROVIDERS: ATTEND Physician Assistant Medical
DX: H92.01 Otalgia, right ear (principal); R68.84 Jaw pain; R51.9 Headache, unspecified; M26.609 Unspecified temporomandibular joint disorder, unspecified side
CPT/HCPCS: 70487; Q9967

== ENCOUNTER → 2022-10-17 | Outpatient (CLI) | payer MEDICARE ==
[~2022-10-17] MED LIST changes: -ISOVUE-370 76% 100ML VIAL As Ordered ONE
== END ==
LOC: M WHC 07:25
PROVIDERS: ATTEND Physician Assistant
DX: Z12.31 Encounter for screening mammogram for malignant neoplasm of breast (principal); M81.0 Age-related osteoporosis without current pathological fracture

== ENCOUNTER → 2022-11-08 | Outpatient (REF) | payer MEDICARE ==
[2022-11-08 13:46] LABS: BASO % 0.4 % (0.0-1.0); EOS # 0.2 10^3/uL (0.0-0.5); EOS % 1.9 % (0.0-3.0); HEMOGLOBIN 11.5 g/dl (12.0-15.5); LYMPH # 1.9 10^3/uL (1.5-5.0); LYMPH % 21.4 % (24.0-44.0); MEAN CORPUSCULAR HEMOGLOBIN 28.5 pg (27.0-33.0); MEAN CORPUSCULAR HGB CONC 31.1 g/dl (32.0-36.5); MEAN CORPUSCULAR VOLUME 91.6 fl (80.0-96.0); MONO # 0.6 10^3/uL (0.0-0.8); NEUTROPHILS # 6.1 10^3/uL (1.5-8.5); NEUTROPHILS % 68.9 % (36.0-66.0); PLATELET COUNT, AUTOMATED 386 10^3/uL (150-450); RED BLOOD COUNT 4.04 10^6/uL (4.00-5.40); WHITE BLOOD COUNT 8.9 10^3/uL (4.0-10.0)
[2022-11-08 14:01] LABS: HEMOGLOBIN A1c 5.9 % (4.0-6.0)
[2022-11-08 14:21] LABS: ALBUMIN 3.1 G/DL (3.2-5.2); ALKALINE PHOSPHATASE 110 U/L (46-116); ALT/SGPT 21 U/L (7.0-40); AST/SGOT 13 U/L (<34); BILIRUBIN,TOTAL 0.3 MG/DL (0.3-1.2); BLOOD UREA NITROGEN 22 MG/DL (9-23); CARBON DIOXIDE LEVEL 27 MMOL/L (20-31); CHLORIDE LEVEL 104 MMOL/L (98-107); CHOLESTEROL LEVEL 160 MG/DL (<200); CHOLESTEROL RISK RATIO 3.44 (<5); CREATININE FOR GFR 0.63 MG/DL (0.55-1.30); FOLATE > 24.0 NG/ML (>5.4); FREE T4 1.03 NG/DL (0.89-1.76); GLOMERULAR FILTRATION RATE > 60.0 (>39); GLUCOSE, FASTING 111 MG/DL (74-106); HDL CHOLESTEROL 46.5 MG/DL (>40); LDL CHOLESTEROL 88.5 MG/DL (<100); NON-HDL-C 113.5 MG/DL; POTASSIUM SERUM 5.2 MMOL/L (3.5-5.1); SODIUM LEVEL 135 MMOL/L (136-145); THYROID STIMULATING HORMONE 1.024 uIU/ML (0.55-4.78); TOTAL 25(OH) VITAMIN D 67.2 NG/ML (20.0-100.0); TOTAL PROTEIN 6.5 G/DL (5.7-8.2); TRIGLYCERIDES LEVEL 125 MG/DL (<150)
[2022-11-08 14:22] LABS: VITAMIN B12 LEVEL 522 PG/ML (211-911)
== END ==
LOC: M SFHCADAM 07:59
PROVIDERS: ATTEND Physician Assistant
DX: I10 Essential (primary) hypertension (principal); E03.9 Hypothyroidism, unspecified; E55.9 Vitamin D deficiency, unspecified; E78.00 Pure hypercholesterolemia, unspecified; E11.9 Type 2 diabetes mellitus without complications

== ENCOUNTER 2022-12-25 08:54 | Emergency (ER) | payer MEDICARE ==
[~2022-12-25] VITALS: Ht 154.9 cm; Wt 75.0 kg
[2022-12-25 08:55] VITALS: BP 119/69; TEMP 97.4; O2SAT 97
[2022-12-25] MEDS ORDERED: ALEN70TA82 (09:43)
[2022-12-25] MEDS ORDERED: SEMA1PEN2 (09:43)
[2022-12-25] MEDS ORDERED: NOXI1TAB PO (09:43)
[2022-12-25] MEDS ORDERED: OXYB5TAB10 PO (09:43)
[2022-12-25] MEDS ORDERED: NAPR220C14 PO (09:43)
[2022-12-25] MEDS ORDERED: IBUP80TA PO (12:08)
== END 2022-12-25 12:36 | disposition home or self-care (01) ==
LOC: M ED 08:54
DX: S82.61XA Displaced fracture of lateral malleolus of right fibula, initial encounter for closed fracture (principal); W01.0XXA Fall on same level from slipping, tripping and stumbling without subsequent striking against object, initial encounter; Y92.009 Unspecified place in unspecified non-institutional (private) residence as the place of occurrence of the external cause; Y93.01 Activity, walking, marching and hiking; Y99.8 Other external cause status; I10 Essential (primary) hypertension; E11.9 Type 2 diabetes mellitus without complications; M81.0 Age-related osteoporosis without current pathological fracture; Z91.018 Allergy to other foods; Z79.899 Other long term (current) drug therapy; Z79.84 Long term (current) use of oral hypoglycemic drugs

== ENCOUNTER → 2022-12-29 | Outpatient (CLI) | payer MEDICARE ==
[~2022-12-29] MED LIST changes: +ALEN70TA82; +IBUP80TA PO; +NOXI1TAB PO; +OXYB5TAB10 PO; +SEMA1PEN2
== END ==
LOC: M SOG 14:29
PROVIDERS: ATTEND Orthopaedic Surgery Hand Surgery
DX: S82.831D Other fracture of upper and lower end of right fibula, subsequent encounter for closed fracture with routine healing (principal)

== ENCOUNTER → 2023-01-06 | Outpatient (CLI) | payer MEDICARE | LOC: M SOG 08:05 | PROVIDERS: ATTEND Physician Assistant | DX: S82.64 Nondisplaced fracture of lateral malleolus of right fibula (principal); M79.89 Other specified soft tissue disorders; X58.XXXS Exposure to other specified factors, sequela ==

== ENCOUNTER → 2023-02-09 | Outpatient (CLI) | payer MEDICARE ==
[~2023-02-09] MED LIST changes: -OXYB5TAB10 PO; +OXYB5TAB11 PO
== END ==
LOC: M SOG 10:30
PROVIDERS: ATTEND Physician Assistant
DX: S82.64 Nondisplaced fracture of lateral malleolus of right fibula (principal)

== ENCOUNTER → 2023-02-10 | Outpatient (CLI) | payer MEDICARE | LOC: M SLEEP 20:00 | PROVIDERS: ATTEND Physician Assistant | DX: G47.33 Obstructive sleep apnea (adult) (pediatric) (principal) ==

== ENCOUNTER → 2023-05-16 | Outpatient (REF) | payer MEDICARE ==
[2023-05-16 17:57] LABS: BLOOD UREA NITROGEN 19 MG/DL (9-23); CALCIUM LEVEL 9.2 MG/DL (8.3-10.6); CARBON DIOXIDE LEVEL 27 MMOL/L (20-31); CHLORIDE LEVEL 105 MMOL/L (98-107); CREATININE FOR GFR 0.67 MG/DL (0.55-1.30); GLOMERULAR FILTRATION RATE > 60.0 (>39); GLUCOSE, FASTING 93 MG/DL (74-106); POTASSIUM SERUM 4.9 MMOL/L (3.5-5.1); SODIUM LEVEL 139 MMOL/L (136-145)
[2023-05-16 18:13] LABS: HEMOGLOBIN A1c 5.8 % (4.0-6.0)
== END ==
LOC: M SFHCADAM 15:28
PROVIDERS: ATTEND Physician Assistant
DX: E11.9 Type 2 diabetes mellitus without complications (principal); I10 Essential (primary) hypertension

== ENCOUNTER → 2023-06-29 | Outpatient (RCR) | payer MEDICARE ==
[~2023-06-29] MED LIST changes: -OXYB5TAB11 PO; +OXYB5TAB14 PO
== END ==
LOC: M PT 06-19 07:48
PROVIDERS: ATTEND Dentist General Practice
DX: M26.609 Unspecified temporomandibular joint disorder, unspecified side (principal)

== ENCOUNTER 2023-07-10 16:10 | Emergency (ER) | payer MEDICARE ==
[~2023-07-10] VITALS: Ht 154.9 cm; Wt 79.2 kg
[2023-07-10 17:40] LABS: BASO % 0.4 % (0.0-1.0); EOS # 0.1 10^3/uL (0.0-0.5); EOS % 1.5 % (0.0-3.0); HEMATOCRIT 39.8 % (36.0-47.0); HEMOGLOBIN 12.7 g/dl (12.0-15.5); LYMPH # 1.8 10^3/uL (1.5-5.0); LYMPH % 23.7 % (24.0-44.0); MEAN CORPUSCULAR HEMOGLOBIN 28.3 pg (27.0-33.0); MEAN CORPUSCULAR HGB CONC 31.9 g/dl (32.0-36.5); MEAN CORPUSCULAR VOLUME 88.8 fl (80.0-96.0); MONO # 0.7 10^3/uL (0.0-0.8); MONO % 9.1 % (2.0-8.0); NEUTROPHILS # 4.9 10^3/uL (1.5-8.5); PLATELET COUNT, AUTOMATED 380 10^3/uL (150-450); RED BLOOD COUNT 4.48 10^6/uL (4.00-5.40); WHITE BLOOD COUNT 7.5 10^3/uL (4.0-10.0)
[2023-07-10 18:09] LABS: LIPASE 36 U/L (12-53)
[2023-07-10 18:11] LABS: ALBUMIN 3.1 G/DL (3.2-5.2); ALKALINE PHOSPHATASE 92 U/L (46-116); ALT/SGPT 21 U/L (7.0-40); AST/SGOT 15 U/L (<34); BILIRUBIN,DIRECT < 0.1 MG/DL (<0.4); BILIRUBIN,TOTAL 0.2 MG/DL (0.3-1.2); BLOOD UREA NITROGEN 22 MG/DL (9-23); CALCIUM LEVEL 8.8 MG/DL (8.3-10.6); CARBON DIOXIDE LEVEL 26 MMOL/L (20-31); CHLORIDE LEVEL 104 MMOL/L (98-107); CREATININE FOR GFR 0.53 MG/DL (0.55-1.30); GLOMERULAR FILTRATION RATE > 60.0 (>39); GLUCOSE, FASTING 132 MG/DL (74-106); SODIUM LEVEL 137 MMOL/L (136-145); TOTAL PROTEIN 6.9 G/DL (5.7-8.2)
[2023-07-10] MEDS ORDERED: ISOVUE-370 76% 100ML VIAL As Ordered ONE (19:49)
[2023-07-10] MEDS: ONDANSETRON 4MG 2ML VIAL IV ONE (20:16)
[2023-07-10] MEDS: PANTOPRAZOLE 40MG VIAL IV ONE (20:16)
[2023-07-10] MEDS: NS 1,000 ML IV ONE (20:17)
[2023-07-10] MEDS: KETOROLAC 30 MG/ML 1ML VIAL IV ONE (20:17)
[2023-07-10] MEDS ORDERED: ONDA4TAB6 PO (21:12)
[2023-07-10] MEDS ORDERED: MACR100C43 PO (21:13)
[2023-07-10 21:23] VITALS: BP 139/67; TEMP 97.5; O2SAT 98
[2023-07-10] MEDS: NITROFURANTOIN (MACROBID) 100 MG CAP PO ONE (21:23)
== END 2023-07-10 21:34 | disposition home or self-care (01) ==
LOC: M ED 16:10
DX: N39.0 Urinary tract infection, site not specified (principal); R10.9 Unspecified abdominal pain; R16.1 Splenomegaly, not elsewhere classified; I10 Essential (primary) hypertension; M54.50 Low back pain, unspecified; F41.9 Anxiety disorder, unspecified; E78.5 Hyperlipidemia, unspecified; E03.9 Hypothyroidism, unspecified; G40.89 Other seizures; Z88.8 Allergy status to other drugs, medicaments and biological substances; Z91.018 Allergy to other foods; Z79.899 Other long term (current) drug therapy; Z79.84 Long term (current) use of oral hypoglycemic drugs
CPT/HCPCS: 74177; 80048; 80076; 81001; 83690; 85025; 87086; 96361; 96374; 96375; 99284; C9113; J1885; J2405; Q9967

== ENCOUNTER 2023-07-13 08:22 | Outpatient (RCR) | payer MEDICARE ==
[~2023-07-13 08:22] MED LIST changes: +MACR100C43 PO
[2023-07-17] MEDS ORDERED: ESSETAB4 PO (11:17)
[2023-07-17] MEDS ORDERED: OMEP40CA5 (11:17)
== END 2023-07-30 ==
LOC: M PT 08:22
PROVIDERS: ATTEND Dentist General Practice
DX: M26.609 Unspecified temporomandibular joint disorder, unspecified side (principal)

== ENCOUNTER → 2023-08-02 | Outpatient (CLI) | payer MEDICARE ==
[~2023-08-02] MED LIST changes: +ESSETAB4 PO; +OMEP40CA5; +PROHANCE 279.3MG/ML 15ML VIAL As Ordered ONE; +PROHANCE 279.3MG/ML 5ML VIAL As Ordered ONE
== END ==
LOC: M RAD 08:38
PROVIDERS: ATTEND Specialist
DX: R16.1 Splenomegaly, not elsewhere classified (principal)
CPT/HCPCS: 74183; A9576

== ENCOUNTER → 2023-08-22 | Outpatient (REF) | payer MEDICARE ==
[~2023-08-22] MED LIST changes: +ACET-897 PO; -ALEN70TA82; +ALEN70TA82 PO; +AMOX500C PO; +IBUP200C25 PO; -OMEP40CA5; +OMEP40CA5 PO; -PROHANCE 279.3MG/ML 15ML VIAL As Ordered ONE; -PROHANCE 279.3MG/ML 5ML VIAL As Ordered ONE; -SEMA1PEN2; +SEMA1PEN2 SQ
== END ==
LOC: M LABDRWAD 18:03
PROVIDERS: ATTEND Specialist
DX: R16.1 Splenomegaly, not elsewhere classified (principal)

== ENCOUNTER → 2023-08-29 | Outpatient (REF) | payer MEDICARE ==
[2023-08-29 12:39] LABS: HEMATOCRIT 37.6 % (36.0-47.0); HEMOGLOBIN 11.4 g/dl (12.0-15.5); MEAN CORPUSCULAR HEMOGLOBIN 28.8 pg (27.0-33.0); MEAN CORPUSCULAR HGB CONC 30.3 g/dl (32.0-36.5); MEAN CORPUSCULAR VOLUME 94.9 fl (80.0-96.0); PLATELET COUNT, AUTOMATED 389 10^3/uL (150-450); RED BLOOD COUNT 3.96 10^6/uL (4.00-5.40); WHITE BLOOD COUNT 8.5 10^3/uL (4.0-10.0)
[2023-08-29 12:54] LABS: INR 0.95; PROTHROMBIN TIME 12.4 SECONDS (12.5-14.5)
== END ==
LOC: M LABDRWAD 12:16
PROVIDERS: ATTEND Dentist
DX: K02.9 Dental caries, unspecified (principal); Z79.01 Long term (current) use of anticoagulants

== ENCOUNTER → 2023-10-10 | Outpatient (REF) | payer MEDICARE ==
[~2023-10-10] MED LIST changes: +LEVO1TAB40 PO; +ONDA-282 PO; -ONDA4TAB6 PO; +VITA200032 PO
[2023-10-10 18:01] LABS: BASO # 0.1 10^3/uL (0.0-0.2); BASO % 0.7 % (0.0-1.0); EOS # 0.2 10^3/uL (0.0-0.5); EOS % 1.9 % (0.0-3.0); HEMOGLOBIN 12.6 g/dl (12.0-15.5); LYMPH # 2.5 10^3/uL (1.5-5.0); LYMPH % 29.6 % (24.0-44.0); MEAN CORPUSCULAR HEMOGLOBIN 29.2 pg (27.0-33.0); MEAN CORPUSCULAR HGB CONC 30.7 g/dl (32.0-36.5); MEAN CORPUSCULAR VOLUME 94.9 fl (80.0-96.0); MONO # 0.6 10^3/uL (0.0-0.8); NEUTROPHILS # 5.2 10^3/uL (1.5-8.5); NEUTROPHILS % 60.1 % (36.0-66.0); PLATELET COUNT, AUTOMATED 462 10^3/uL (150-450); RED BLOOD COUNT 4.32 10^6/uL (4.00-5.40); WHITE BLOOD COUNT 8.6 10^3/uL (4.0-10.0)
[2023-10-10 18:09] LABS: HEMOGLOBIN A1c 6.2 % (4.0-6.0)
[2023-10-10 18:27] LABS: FREE T4 0.78 NG/DL (0.89-1.76)
[2023-10-10 18:29] LABS: FOLATE > 24.0 NG/ML (>5.4)
[2023-10-10 18:31] LABS: ALBUMIN 3.3 G/DL (3.2-5.2); ALKALINE PHOSPHATASE 111 U/L (46-116); ALT/SGPT 20 U/L (7.0-40); AST/SGOT 12 U/L (<34); BILIRUBIN,TOTAL 0.2 MG/DL (0.3-1.2); BLOOD UREA NITROGEN 21 MG/DL (9-23); CALCIUM LEVEL 9.2 MG/DL (8.3-10.6); CARBON DIOXIDE LEVEL 28 MMOL/L (20-31); CHLORIDE LEVEL 104 MMOL/L (98-107); CREATININE FOR GFR 0.59 MG/DL (0.55-1.30); GLOMERULAR FILTRATION RATE > 60.0 (>39); GLUCOSE, FASTING 86 MG/DL (74-106); POTASSIUM SERUM 5.1 MMOL/L (3.5-5.1); SODIUM LEVEL 139 MMOL/L (136-145); TOTAL PROTEIN 7.1 G/DL (5.7-8.2)
[2023-10-10 18:42] LABS: VITAMIN B12 LEVEL 603 PG/ML (211-911)
== END ==
LOC: M SFHCADAM 12:01
PROVIDERS: ATTEND Physician Assistant
DX: Z01.818 Encounter for other preprocedural examination (principal); E03.9 Hypothyroidism, unspecified; I10 Essential (primary) hypertension; E11.9 Type 2 diabetes mellitus without complications; E78.00 Pure hypercholesterolemia, unspecified

== ENCOUNTER → 2023-10-12 | Outpatient (REF) | payer MEDICARE | LOC: M SFHCADAM 07:19 | PROVIDERS: ATTEND Physician Assistant | DX: Z01.818 Encounter for other preprocedural examination (principal); E03.9 Hypothyroidism, unspecified; I10 Essential (primary) hypertension; E11.9 Type 2 diabetes mellitus without complications; E78.00 Pure hypercholesterolemia, unspecified ==

== ENCOUNTER 2023-10-23 05:52 | Inpatient (IN) | payer MEDICARE ==
[2023-10-23] VITALS (12 sets, daily range): BP systolic 103–118; BP diastolic 55–59; TEMP 96.8–97.2; O2SAT 88–98
[~2023-10-23] VITALS: Ht 154.9 cm; Wt 91.2 kg
[2023-10-23 06:31] LABS: HEMATOCRIT 36.3 % (36.0-47.0); HEMOGLOBIN 11.6 g/dl (12.0-15.5); MEAN CORPUSCULAR HEMOGLOBIN 29.2 pg (27.0-33.0); MEAN CORPUSCULAR VOLUME 91.4 fl (80.0-96.0); PLATELET COUNT, AUTOMATED 340 10^3/uL (150-450); RED BLOOD COUNT 3.97 10^6/uL (4.00-5.40); WHITE BLOOD COUNT 7.8 10^3/uL (4.0-10.0)
[2023-10-23] MEDS ORDERED: GLUCOSE 4 GM CHEW PO PRN (06:45)
[2023-10-23] MEDS ORDERED: LR 1,000 ML IV SCH (06:45)
[2023-10-23] MEDS ORDERED: GLUCAGON INJ 1MG VIAL SC PRN (06:45)
[2023-10-23] MEDS ORDERED: DEXTROSE 50% 50ML SYRINGE IV PRN (06:45)
[2023-10-23] MEDS ORDERED: INSULIN LISPRO (NovoLOG) PER UNIT SC PRN (06:45)
[2023-10-23 06:49] LABS: INR 1.02; PROTHROMBIN TIME 13.1 SECONDS (12.5-14.5)
[2023-10-23] MEDS ORDERED: ROCURONIUM BROMIDE 50MG/5ML VIAL As Ordered ONE (06:54)
[2023-10-23] MEDS ORDERED: propofoL 200 MG/20 ML VIAL As Ordered ONE (06:54)
[2023-10-23] MEDS ORDERED: LIDOCAINE 2% 100MG/5ML SDV (FOR ANES.) As Ordered ONE (06:54)
[2023-10-23] MEDS ORDERED: SUGAMMADEX SODIUM 500 MG/5 ML VIAL (BRIDION) As Ordered ONE (06:54)
[2023-10-23] MEDS ORDERED: ONDANSETRON 4MG 2ML VIAL As Ordered ONE (06:54)
[2023-10-23] MEDS ORDERED: HOME MED LIST COMPLETE! XX SCH (06:55)
[2023-10-23] MEDS ORDERED: MIDAZOLAM INJ 2MG/2ML VIAL As Ordered ONE (06:57)
[2023-10-23] MEDS ORDERED: fentaNYL 250 MCG/5 ML INJECTION As Ordered ONE (06:57)
[2023-10-23] MEDS: ceFAZolin SOD 2 GM in IV 1 EA IV ONE (09:27)
[2023-10-23] MEDS ORDERED: ACETAMINOPHEN 1000MG 100ML IV BAG As Ordered ONE (09:46)
[2023-10-23] MEDS ORDERED: ePHEDrine SULFATE 25 MG/5 ML(5MG/ML) SYRINGE As Ordered ONE (10:01)
[2023-10-23] MEDS ORDERED: PHENYLephrine 500MCG 5ML (100MCG/ML) SYRINGE As Ordered ONE (10:01)
[2023-10-23] MEDS ORDERED: fentaNYL 100 MCG/2 ML INJECTION As Ordered ONE (11:21)
[2023-10-23] MEDS ORDERED: fentaNYL 100 MCG/2 ML INJECTION IV PRN (13:40)
[2023-10-23] MEDS ORDERED: ONDANSETRON 4MG 2ML VIAL IV PRN ×2 (13:40→14:00)
[2023-10-23] MEDS ORDERED: MEPERIDINE 25 MG/ML 1ML VIAL IV PRN (13:40)
[2023-10-23] MEDS ORDERED: diphenhydrAMINE 50MG/ML VIAL IV PRN (13:40)
[2023-10-23] MEDS ORDERED: METOCLOPRAMIDE INJ 10MG/2ML VIAL IV PRN (13:40)
[2023-10-23] MEDS ORDERED: MORPHINE 4 MG/ML 1ML VIAL IV PRN (14:00)
[2023-10-23] MEDS: oxyCODONE 5MG TAB PO PRN ×2 (14:08→18:24)
[2023-10-23] MEDS: HYDROMORPHONE HCL 0.5 MG/ 0.5 ML SYRINGE IV PRN (14:08)
[2023-10-23 14:38] LABS: BASO % 0.2 % (0.0-1.0); HEMATOCRIT 32.3 % (36.0-47.0); LYMPH # 0.6 10^3/uL (1.5-5.0); LYMPH % 3.1 % (24.0-44.0); MEAN CORPUSCULAR HEMOGLOBIN 28.9 pg (27.0-33.0); MEAN CORPUSCULAR VOLUME 93.4 fl (80.0-96.0); MONO # 0.4 10^3/uL (0.0-0.8); MONO % 1.9 % (2.0-8.0); NEUTROPHILS # 17.4 10^3/uL (1.5-8.5); NEUTROPHILS % 93.9 % (36.0-66.0); PLATELET COUNT, AUTOMATED 340 10^3/uL (150-450); RED BLOOD COUNT 3.46 10^6/uL (4.00-5.40); WHITE BLOOD COUNT 18.5 10^3/uL (4.0-10.0)
[2023-10-23 14:59] LABS: BLOOD UREA NITROGEN 16 MG/DL (9-23); CALCIUM LEVEL 7.9 MG/DL (8.3-10.6); CARBON DIOXIDE LEVEL 26 MMOL/L (20-31); CHLORIDE LEVEL 103 MMOL/L (98-107); CREATININE FOR GFR 0.53 MG/DL (0.55-1.30); GLOMERULAR FILTRATION RATE > 60.0 (>39); GLUCOSE, FASTING 223 MG/DL (74-106); POTASSIUM SERUM 3.9 MMOL/L (3.5-5.1); SODIUM LEVEL 135 MMOL/L (136-145)
[2023-10-23 15:25] LABS: VENOUS BASE EXCESS -3.3 (-2.0-2.0); VENOUS HCO3 23.7 MMOL/L (23.0-27.0); VENOUS O2 SATURATION 85.6 % (60.0-80.0); VENOUS PARTIAL PRESSURE CO2 51.4 mmHg (38.0-50.0); VENOUS PH 7.282 UNITS (7.330-7.430); VENOUS STANDARD HCO3 21.5 MMOL/L; VENOUS TOTAL CO2 25.3 MMOL/L (24.0-28.0)
[2023-10-23] MEDS: KCL 20MEQ IN D5/0.45NS 1000ML 1,000 ML IV SCH (16:24)
[2023-10-23] MEDS: PANTOPRAZOLE 40MG TAB (PROTONIX) PO SCH (16:37)
[2023-10-23] MEDS: LR 1,000 ML IV SCH (16:37)
[2023-10-23] MEDS: NALOXONE INJ 0.4MG/1ML VIAL IV STA (16:37)
[2023-10-23 17:02] LABS: PROCALCITONIN <0.04 ng/ml
[2023-10-23] MEDS: SENOKOT S TAB PO SCH (20:35)
[2023-10-23] MEDS: ATORVASTATIN 20 MG TAB PO SCH (20:35)
[2023-10-23] MEDS: FAMOTIDINE 20 MG TAB PO SCH (20:36)
[2023-10-23] MEDS: oxyBUTYnin 5 MG TAB PO SCH (20:36)
[2023-10-24] VITALS (26 sets, daily range): BP systolic 98–136; BP diastolic 52–64; TEMP 98–99; O2SAT 69–98
[2023-10-24] MEDS: LEVOTHYROXINE 88MCG TABLET (0.088 MG) PO SCH (05:41)
[2023-10-24] MEDS ORDERED: ISOVUE-370 76% 100ML VIAL As Ordered ONE (07:35)
[2023-10-24 08:24] LABS: BASO % 0.1 % (0.0-1.0); EOS % 0.2 % (0.0-3.0); HEMATOCRIT 28.9 % (36.0-47.0); HEMOGLOBIN 8.7 g/dl (12.0-15.5); LYMPH # 2.6 10^3/uL (1.5-5.0); LYMPH % 15.8 % (24.0-44.0); MEAN CORPUSCULAR HEMOGLOBIN 28.6 pg (27.0-33.0); MEAN CORPUSCULAR HGB CONC 30.1 g/dl (32.0-36.5); MEAN CORPUSCULAR VOLUME 95.1 fl (80.0-96.0); MONO # 1.2 10^3/uL (0.0-0.8); MONO % 7.6 % (2.0-8.0); NEUTROPHILS # 12.3 10^3/uL (1.5-8.5); NEUTROPHILS % 75.9 % (36.0-66.0); PLATELET COUNT, AUTOMATED 325 10^3/uL (150-450); RED BLOOD COUNT 3.04 10^6/uL (4.00-5.40); WHITE BLOOD COUNT 16.2 10^3/uL (4.0-10.0)
[2023-10-24 08:36] LABS: ERYTHROCYTE SEDIMENTATION RATE 57 mm/hr (0-30)
[2023-10-24 08:52] LABS: CK-MB VALUE MASS < 1.0 NG/ML (<3.6)
[2023-10-24 08:55] LABS: CPK CREATINE PHOSPHOKINASE 93 U/L (34-145); MB/CK RELATIVE INDEX 1.07 (< OR =4)
[2023-10-24 08:56] LABS: HEMOGLOBIN A1c 5.8 % (4.0-6.0); THYROID STIMULATING HORMONE 2.887 uIU/ML (0.55-4.78); THYROXINE (T4) 8.3 UG/DL (4.5-10.9)
[2023-10-24 09:00] LABS: PROCALCITONIN 0.04 ng/ml
[2023-10-24] MEDS: FLUoxetine 20MG CAP PO SCH (09:01)
[2023-10-24] MEDS: ENOXAPARIN 40MG/0.4ML SYRINGE (J1650 PER 10MG) SC SCH (09:05)
[2023-10-24 09:07] LABS: ALBUMIN 2.4 G/DL (3.2-5.2); ALKALINE PHOSPHATASE 75 U/L (46-116); ALT/SGPT 12 U/L (7.0-40); AST/SGOT 10 U/L (<34); BILIRUBIN,TOTAL 0.2 MG/DL (0.3-1.2); BLOOD UREA NITROGEN 12 MG/DL (9-23); CALCIUM LEVEL 7.9 MG/DL (8.3-10.6); CARBON DIOXIDE LEVEL 29 MMOL/L (20-31); CHLORIDE LEVEL 105 MMOL/L (98-107); CREATININE FOR GFR 0.47 MG/DL (0.55-1.30); FREE THYROXINE INDEX 3.8 % (1.3-4.8); GLOMERULAR FILTRATION RATE > 60.0 (>39); GLUCOSE, FASTING 152 MG/DL (74-106); POTASSIUM SERUM 4.7 MMOL/L (3.5-5.1); SODIUM LEVEL 138 MMOL/L (136-145); T UPTAKE 45.8 % (22.5-37.0); TOTAL PROTEIN 5.4 G/DL (5.7-8.2)
[2023-10-24] MEDS ORDERED: SENN-52 PO (10:44)
[2023-10-24] MEDS ORDERED: OXYC-517 PO (10:44)
[2023-10-24] MEDS: ACETAMINOPHEN TAB 650MG DOSE (2X325MG) PO PRN (12:59)
[2023-10-24] MEDS: LevoFLOXacin 750 MG TABLET PO SCH (18:32)
[2023-10-24] MEDS: IPRATROPIUM 0.5MG/ALBUTEROL 2.5MG INH SOL UD 3ML (DUONEB) NEB PRN (21:43)
[2023-10-24 21:53] LABS: ABG BASE EXCESS 4.2 (-2.0-2.0); ABG HCO3 28.9 MMOL/L (22.0-26.0); ABG O2 SATURATION 95.8 % (95.0-99.0); ABG PARTIAL PRESSURE CO2 44.3 mmHg (35.0-45.0); ABG PARTIAL PRESSURE O2 75.7 mmHg (75.0-100.0); ABG STANDARD HCO3 28.2 MMOL/L. (22.0-26.0); ABG TOTAL CO2 30.3 MMOL/L (23.0-31.0); ABG pH (ARTERIAL) 7.433 UNITS (7.350-7.450)
[2023-10-25] VITALS (33 sets, daily range): BP systolic 100–124; BP diastolic 50–85; TEMP 97.9–99; O2SAT 88–96
[2023-10-25] MEDS: MOM 30ML SUSPENSION UDC PO ONE (08:33)
[2023-10-25] MEDS: SENOKOT S TAB PO ONE (08:34)
[2023-10-25] MEDS: PERCOCET 5MG/325MG TAB PO ONE (08:36)
[2023-10-25 09:32] LABS: HEMATOCRIT 28.8 % (36.0-47.0); MEAN CORPUSCULAR HEMOGLOBIN 29.5 pg (27.0-33.0); MEAN CORPUSCULAR HGB CONC 31.3 g/dl (32.0-36.5); MEAN CORPUSCULAR VOLUME 94.4 fl (80.0-96.0); PLATELET COUNT, AUTOMATED 368 10^3/uL (150-450); RED BLOOD COUNT 3.05 10^6/uL (4.00-5.40); WHITE BLOOD COUNT 18.8 10^3/uL (4.0-10.0)
[2023-10-25] MEDS: FUROSEMIDE 20MG/2ML VIAL IV ONE (12:24)
[2023-10-25] MEDS: BISACODYL 10MG SUPP PR ONE (12:24)
[2023-10-25] MEDS: MIDODRINE 5 MG TAB PO SCH (12:24)
[2023-10-25] MEDS: oxyCODONE 5MG TAB PO PRN (12:42)
[2023-10-26] VITALS (14 sets, daily range): BP systolic 16–118; BP diastolic 56–62; TEMP 98–98.7; O2SAT 87–96
[2023-10-26 07:55] LABS: BASO % 0.2 % (0.0-1.0); EOS # 0.1 10^3/uL (0.0-0.5); EOS % 0.8 % (0.0-3.0); HEMATOCRIT 29.6 % (36.0-47.0); HEMOGLOBIN 9.4 g/dl (12.0-15.5); LYMPH # 1.9 10^3/uL (1.5-5.0); LYMPH % 11.2 % (24.0-44.0); MEAN CORPUSCULAR HEMOGLOBIN 28.8 pg (27.0-33.0); MEAN CORPUSCULAR HGB CONC 31.8 g/dl (32.0-36.5); MEAN CORPUSCULAR VOLUME 90.8 fl (80.0-96.0); MONO # 1.4 10^3/uL (0.0-0.8); MONO % 8.6 % (2.0-8.0); NEUTROPHILS # 13.1 10^3/uL (1.5-8.5); NEUTROPHILS % 78.7 % (36.0-66.0); PLATELET COUNT, AUTOMATED 428 10^3/uL (150-450); RED BLOOD COUNT 3.26 10^6/uL (4.00-5.40); WHITE BLOOD COUNT 16.7 10^3/uL (4.0-10.0)
[2023-10-26] MEDS ORDERED: MIDODRINE 5 MG TAB PO SCH (08:00)
[2023-10-26 08:28] LABS: BLOOD UREA NITROGEN 10 MG/DL (9-23); CALCIUM LEVEL 8.4 MG/DL (8.3-10.6); CARBON DIOXIDE LEVEL 28 MMOL/L (20-31); CHLORIDE LEVEL 102 MMOL/L (98-107); CREATININE FOR GFR 0.49 MG/DL (0.55-1.30); GLOMERULAR FILTRATION RATE > 60.0 (>39); GLUCOSE, FASTING 142 MG/DL (74-106); POTASSIUM SERUM 3.9 MMOL/L (3.5-5.1); SODIUM LEVEL 136 MMOL/L (136-145)
[2023-10-26] MEDS: FUROSEMIDE 20MG/2ML VIAL IV ONE ×2 (09:24→12:44)
[2023-10-26] MEDS: metOLazone 2.5 MG TAB PO ONE ×2 (09:34→12:03)
[2023-10-26] MEDS ORDERED: LEVO750T14 PO (10:30)
[2023-10-26] MEDS: MIDODRINE 5 MG TAB PO ONE (12:02)
[2023-10-26 12:08] LABS: IONIZED CALCIUM 4.2 MG/DL (4.5-5.3)
[2023-10-26 12:35] LABS: BLOOD UREA NITROGEN 12 MG/DL (9-23); CALCIUM LEVEL 8.2 MG/DL (8.3-10.6); CARBON DIOXIDE LEVEL 30 MMOL/L (20-31); CHLORIDE LEVEL 99 MMOL/L (98-107); CREATININE FOR GFR 0.58 MG/DL (0.55-1.30); GLOMERULAR FILTRATION RATE > 60.0 (>39); GLUCOSE, FASTING 177 MG/DL (74-106); MAGNESIUM LEVEL 1.8 MG/DL (1.8-2.4); POTASSIUM SERUM 4.1 MMOL/L (3.5-5.1); SODIUM LEVEL 134 MMOL/L (136-145)
== END 2023-10-26 17:01 | disposition home health service (06) | DRG 799 ==
LOC: M OR 05:52 → M PCU 16:06
PROVIDERS: ADMIT Surgery; ATTEND Surgery
PROC: 8E0W4CZ Robotic Assisted Procedure of Trunk Region, Percutaneous Endoscopic Approach (ICD-10-PCS; 2023-10-23)
PROC: 07TP4ZZ Resection of Spleen, Percutaneous Endoscopic Approach (ICD-10-PCS; principal; 2023-10-23 07:30)
PROC: B246ZZZ Ultrasonography of Right and Left Heart (ICD-10-PCS; 2023-10-24)
DX: D73.89 Other diseases of spleen (principal); J95.2 Acute pulmonary insufficiency following nonthoracic surgery; J98.11 Atelectasis; R16.1 Splenomegaly, not elsewhere classified; E03.9 Hypothyroidism, unspecified; G47.33 Obstructive sleep apnea (adult) (pediatric); E11.9 Type 2 diabetes mellitus without complications; F41.9 Anxiety disorder, unspecified; M81.0 Age-related osteoporosis without current pathological fracture; F32.A Depression, unspecified; I10 Essential (primary) hypertension; M47.816 Spondylosis without myelopathy or radiculopathy, lumbar region; E66.9 Obesity, unspecified; K21.9 Gastro-esophageal reflux disease without esophagitis; R32 Unspecified urinary incontinence; E87.70 Fluid overload, unspecified; K59.03 Drug induced constipation; E78.5 Hyperlipidemia, unspecified; T40.2X5A Adverse effect of other opioids, initial encounter; Z91.018 Allergy to other foods; Z91.048 Other nonmedicinal substance allergy status; Z79.890 Hormone replacement therapy; Z79.899 Other long term (current) drug therapy; Z68.38 Body mass index [BMI] 38.0-38.9, adult; R33.9 Retention of urine, unspecified; Z96.653 Presence of artificial knee joint, bilateral; Z85.43 Personal history of malignant neoplasm of ovary

== ENCOUNTER → 2023-11-15 | Outpatient (REF) | payer MEDICARE ==
[~2023-11-15] MED LIST changes: +LEVO750T14 PO; +OXYC-517 PO; +SENN-52 PO
[2023-11-16 13:58] LABS: CREATININE, URINE 63.6 MG/DL
[2023-11-16 13:59] LABS: MALB URINE SIEMENS < 3.0 MG/L; MAU/CREAT RATIO 4.7 MCG/MG (0.0-30.0)
== END ==
LOC: M SFHCADAM 12:41
PROVIDERS: ATTEND Physician Assistant
DX: Z00.00 Encounter for general adult medical examination without abnormal findings (principal); E03.9 Hypothyroidism, unspecified; E11.9 Type 2 diabetes mellitus without complications; K59.00 Constipation, unspecified; M26.609 Unspecified temporomandibular joint disorder, unspecified side

== ENCOUNTER → 2023-11-15 | Outpatient (REF) | payer MEDICARE ==
[2023-11-15 14:18] LABS: CHOLESTEROL RISK RATIO 4.52 (<5); HDL CHOLESTEROL 46.4 MG/DL (>40); LDL CHOLESTEROL 105.4 MG/DL (<100); NON-HDL-C 163.6 MG/DL
== END ==
LOC: M SFHCADAM 07:29
PROVIDERS: ATTEND Physician Assistant
DX: Z00.00 Encounter for general adult medical examination without abnormal findings (principal); K59.00 Constipation, unspecified; E11.9 Type 2 diabetes mellitus without complications; M26.609 Unspecified temporomandibular joint disorder, unspecified side; I10 Essential (primary) hypertension; E03.9 Hypothyroidism, unspecified

== ENCOUNTER → 2024-03-01 | Outpatient (REF) | payer MEDICARE ==
[2024-03-01 12:27] LABS: HEMATOCRIT 41.5 % (36.0-47.0); MEAN CORPUSCULAR HEMOGLOBIN 29.1 pg (27.0-33.0); MEAN CORPUSCULAR HGB CONC 31.3 g/dl (32.0-36.5); PLATELET COUNT, AUTOMATED 628 10^3/uL (150-450); RED BLOOD COUNT 4.46 10^6/uL (4.00-5.40); WHITE BLOOD COUNT 10.8 10^3/uL (4.0-10.0)
[2024-03-01 12:32] LABS: ALBUMIN 3.5 G/DL (3.2-5.2); ALKALINE PHOSPHATASE 104 U/L (35-104); ALT/SGPT 20 U/L (7.0-40); AST/SGOT 12 U/L (<34); BILIRUBIN,TOTAL 0.4 MG/DL (0.3-1.2); BLOOD UREA NITROGEN 21 MG/DL (9-23); CALCIUM LEVEL 9.9 MG/DL (8.3-10.6); CARBON DIOXIDE LEVEL 27 MMOL/L (20-31); CHLORIDE LEVEL 105 MMOL/L (98-107); CREATININE FOR GFR 0.62 MG/DL (0.55-1.30); GLOMERULAR FILTRATION RATE > 60.0 (>39); GLUCOSE, FASTING 98 MG/DL (74-106); POTASSIUM SERUM 5.2 MMOL/L (3.5-5.1); SODIUM LEVEL 139 MMOL/L (136-145); TOTAL PROTEIN 7.1 G/DL (5.7-8.2)
== END ==
LOC: M SFHCADAM 09:14
PROVIDERS: ATTEND Physician Assistant
DX: E11.9 Type 2 diabetes mellitus without complications (principal); M81.0 Age-related osteoporosis without current pathological fracture; Z90.81 Acquired absence of spleen; I10 Essential (primary) hypertension; K22.70 Barrett's esophagus without dysplasia; L98.9 Disorder of the skin and subcutaneous tissue, unspecified; Z28.21 Immunization not carried out because of patient refusal; N32.81 Overactive bladder; E78.00 Pure hypercholesterolemia, unspecified; E03.9 Hypothyroidism, unspecified; F41.9 Anxiety disorder, unspecified; M19.91 Primary osteoarthritis, unspecified site

== ENCOUNTER 2024-03-19 10:49 | Outpatient (CLI) | payer MEDICARE ==
[~2024-03-19] VITALS: Ht 154.9 cm; Wt 81.8 kg
[~2024-03-19 10:49] MED LIST changes: -LEVO750T14 PO; +LEVO75TAB PO
[2024-03-19 11:20] VITALS: BP 169/76; O2SAT 94
[2024-03-19] MEDS: ZOLEDRONIC ACID 5 MG in IV 1 EA IV ONE (11:31)
[2024-03-19] MEDS ORDERED: FERR325T3 PO (11:36)
[2024-03-19 12:18] VITALS: BP 117/70; O2SAT 95
== END 2024-03-19 12:20 | disposition home or self-care (01) ==
LOC: M INFU 10:49
PROVIDERS: ATTEND Physician Assistant
DX: M19.91 Primary osteoarthritis, unspecified site (principal); Z88.8 Allergy status to other drugs, medicaments and biological substances; Z91.018 Allergy to other foods
CPT/HCPCS: 96365; J3489

== ENCOUNTER 2024-07-15 07:37 | Day surgery (SDC) | payer MEDICARE ==
[~2024-07-15] VITALS: Ht 154.9 cm; Wt 85.7 kg
[~2024-07-15 07:37] MED LIST changes: +FERR325T3 PO; +IBUP200T46 PO; +LR 1,000 ML IV SCH; +SEMA0.257
[2024-07-15] MEDS: FLURBIPROFEN 0.03% OPHTH SOLN 2.5 ML OD SCH (08:12)
[2024-07-15] MEDS: PHENYLEPHRINE 2.5% OPHTH SOL 2ML OD SCH (08:12)
[2024-07-15] MEDS: CYCLOPENTOLATE 1% OPHTH SOLN 2ML BTL OD SCH (08:12)
[2024-07-15] MEDS: TETRACAINE 0.5% OPHTH SOLN 4ML OD SCH (08:12)
[2024-07-15] MEDS ORDERED: INSULIN LISPRO (NovoLOG) PER UNIT SC PRN (08:15)
[2024-07-15] MEDS ORDERED: fentaNYL 100 MCG/2 ML INJECTION As Ordered ONE (08:44)
[2024-07-15] MEDS ORDERED: MIDAZOLAM INJ 2MG/2ML VIAL As Ordered ONE (08:45)
[2024-07-15] MEDS: LIDOCAINE 1% SDV 5ML VIAL As Ordered ONE (09:42)
[2024-07-15] MEDS: CEFUROXIME 1MG/0.1ML INTRACAMERAL INJ As Ordered ONE (09:47)
[2024-07-15 10:02] VITALS: BP 122/67; TEMP 97.2; O2SAT 95
== END 2024-07-15 10:21 | disposition home or self-care (01) ==
LOC: M SDC 07:37
PROVIDERS: ATTEND Ophthalmology
DX: E11.36 Type 2 diabetes mellitus with diabetic cataract (principal); H25.9 Unspecified age-related cataract; I10 Essential (primary) hypertension; E03.9 Hypothyroidism, unspecified; E78.00 Pure hypercholesterolemia, unspecified; G47.30 Sleep apnea, unspecified; Z79.890 Hormone replacement therapy; Z79.899 Other long term (current) drug therapy; Z79.84 Long term (current) use of oral hypoglycemic drugs; Z79.85 Long-term (current) use of injectable non-insulin antidiabetic drugs; Z79.1 Long term (current) use of non-steroidal anti-inflammatories (NSAID); K21.9 Gastro-esophageal reflux disease without esophagitis; Z85.42 Personal history of malignant neoplasm of other parts of uterus; Z88.8 Allergy status to other drugs, medicaments and biological substances; Z91.018 Allergy to other foods; Z92.3 Personal history of irradiation
CPT/HCPCS: 66984; J0697; J2250; J3010; V2632

== ENCOUNTER → 2024-08-30 | Outpatient (REF) | payer MEDICARE ==
[~2024-08-30] MED LIST changes: -LR 1,000 ML IV SCH
[2024-08-30 13:38] LABS: ALBUMIN 3.3 G/DL (3.2-5.2); ALKALINE PHOSPHATASE 89 U/L (35-104); ALT/SGPT 25 U/L (7.0-40); AST/SGOT 13 U/L (<34); BILIRUBIN,TOTAL 0.2 MG/DL (0.3-1.2); BLOOD UREA NITROGEN 20 MG/DL (9-23); CALCIUM LEVEL 9.3 MG/DL (8.3-10.6); CARBON DIOXIDE LEVEL 30 MMOL/L (20-31); CHLORIDE LEVEL 104 MMOL/L (98-107); CHOLESTEROL LEVEL 163 MG/DL (<200); CHOLESTEROL RISK RATIO 3.72 (<5); CREATININE FOR GFR 0.68 MG/DL (0.55-1.30); FOLATE > 24.0 NG/ML (>5.4); FREE T4 1.39 NG/DL (0.89-1.76); GLOMERULAR FILTRATION RATE > 90.0 (>39); GLUCOSE, FASTING 122 MG/DL (74-106); HDL CHOLESTEROL 43.8 MG/DL (>40); LDL CHOLESTEROL 77.4 MG/DL (<100); NON-HDL-C 119.2 MG/DL; POTASSIUM SERUM 4.9 MMOL/L (3.5-5.1); SODIUM LEVEL 139 MMOL/L (136-145); THYROID STIMULATING HORMONE 0.178 uIU/ML (0.55-4.78); TOTAL PROTEIN 6.5 G/DL (5.7-8.2); TRIGLYCERIDES LEVEL 209 MG/DL (<150)
[2024-08-30 13:39] LABS: VITAMIN B12 LEVEL 458 PG/ML (211-911)
[2024-08-30 13:46] LABS: BASO # 0.1 10^3/uL (0.0-0.2); BASO % 0.9 % (0.0-1.0); EOS # 0.3 10^3/uL (0.0-0.5); EOS % 2.8 % (0.0-3.0); HEMATOCRIT 40.5 % (36.0-47.0); HEMOGLOBIN 12.8 g/dl (12.0-15.5); LYMPH # 2.4 10^3/uL (1.5-5.0); LYMPH % 23.9 % (24.0-44.0); MEAN CORPUSCULAR HEMOGLOBIN 31.7 pg (27.0-33.0); MEAN CORPUSCULAR HGB CONC 31.6 g/dl (32.0-36.5); MEAN CORPUSCULAR VOLUME 100.2 fl (80.0-96.0); MONO # 0.8 10^3/uL (0.0-0.8); MONO % 8.3 % (2.0-8.0); NEUTROPHILS # 6.3 10^3/uL (1.5-8.5); NEUTROPHILS % 63.7 % (36.0-66.0); PLATELET COUNT, AUTOMATED 543 10^3/uL (150-450); RED BLOOD COUNT 4.04 10^6/uL (4.00-5.40); WHITE BLOOD COUNT 9.9 10^3/uL (4.0-10.0)
[2024-08-30 13:48] LABS: HEMOGLOBIN A1c 5.7 % (4.0-6.0)
== END ==
LOC: M SFHCADAM 08:11
PROVIDERS: ATTEND Physician Assistant
DX: E11.9 Type 2 diabetes mellitus without complications (principal); I10 Essential (primary) hypertension; E03.9 Hypothyroidism, unspecified; M81.0 Age-related osteoporosis without current pathological fracture; Z90.81 Acquired absence of spleen; K22.70 Barrett's esophagus without dysplasia; L98.9 Disorder of the skin and subcutaneous tissue, unspecified; Z28.21 Immunization not carried out because of patient refusal; N32.81 Overactive bladder; E78.00 Pure hypercholesterolemia, unspecified; F41.9 Anxiety disorder, unspecified; M19.91 Primary osteoarthritis, unspecified site; R41.3 Other amnesia

== ENCOUNTER → 2024-09-04 | Outpatient (CLI) | payer MEDICARE | LOC: M WHC 07:26 | PROVIDERS: ATTEND Physician Assistant | DX: Z12.31 Encounter for screening mammogram for malignant neoplasm of breast (principal) ==

== ENCOUNTER 2024-09-16 11:19 | Day surgery (SDC) | payer MEDICARE ==
[~2024-09-16] VITALS: Ht 154.9 cm; Wt 83.5 kg
[~2024-09-16 11:19] MED LIST changes: +CEFUROXIME 1MG/0.1ML INTRACAMERAL INJ As Ordered ONE; +LEVO75TA34 PO; +LIDOCAINE 1% SDV 5ML VIAL As Ordered ONE; +LR 1,000 ML IV SCH
[2024-09-16] MEDS: TETRACAINE 0.5% OPHTH SOLN 4ML OS SCH (11:56)
[2024-09-16] MEDS: PHENYLEPHRINE 2.5% OPHTH SOL 2ML OS SCH (11:56)
[2024-09-16] MEDS: CYCLOPENTOLATE 1% OPHTH SOLN 2ML BTL OS SCH (11:56)
[2024-09-16] MEDS: FLURBIPROFEN 0.03% OPHTH SOLN 2.5 ML OS SCH (11:56)
[2024-09-16] MEDS ORDERED: fentaNYL 100 MCG/2 ML INJECTION As Ordered ONE (12:24)
[2024-09-16 13:30] VITALS: BP 126/67; TEMP 96.9; O2SAT 97
== END 2024-09-16 13:49 | disposition home or self-care (01) ==
LOC: M SDC 11:19
PROVIDERS: ATTEND Ophthalmology
DX: E11.36 Type 2 diabetes mellitus with diabetic cataract (principal); H25.12 Age-related nuclear cataract, left eye; I10 Essential (primary) hypertension; E78.00 Pure hypercholesterolemia, unspecified; E03.9 Hypothyroidism, unspecified; K21.9 Gastro-esophageal reflux disease without esophagitis; G47.30 Sleep apnea, unspecified; Z85.42 Personal history of malignant neoplasm of other parts of uterus; R32 Unspecified urinary incontinence; Z92.3 Personal history of irradiation; Z79.899 Other long term (current) drug therapy; Z79.890 Hormone replacement therapy; Z79.84 Long term (current) use of oral hypoglycemic drugs; Z88.8 Allergy status to other drugs, medicaments and biological substances; Z91.048 Other nonmedicinal substance allergy status; Z90.710 Acquired absence of both cervix and uterus
CPT/HCPCS: 66984; J0697; J3010; V2632

== ENCOUNTER → 2025-01-23 | Outpatient (CLI) | payer MEDICARE ==
[~2025-01-23] MED LIST changes: -CEFUROXIME 1MG/0.1ML INTRACAMERAL INJ As Ordered ONE; -LIDOCAINE 1% SDV 5ML VIAL As Ordered ONE; -LR 1,000 ML IV SCH
== END ==
LOC: M ADAMS 11:48
PROVIDERS: ATTEND Physician Assistant Medical
DX: M79.642 Pain in left hand (principal); M19.042 Primary osteoarthritis, left hand; M19.032 Primary osteoarthritis, left wrist

== ENCOUNTER → 2025-03-07 | Outpatient (REF) | payer MEDICARE ==
[2025-03-07 14:35] LABS: PLATELET COUNT, AUTOMATED 573 10^3/uL (150-450)
[2025-03-07 14:37] LABS: ALT/SGPT 21.0 U/L (7.0-40); AST/SGOT 21.0 U/L (<34); CALCIUM LEVEL 8.9 MG/DL (8.3-10.6); CARBON DIOXIDE LEVEL 29.0 MMOL/L (20-31); CHLORIDE LEVEL 102.0 MMOL/L (98-107); CREATININE FOR GFR 0.7 MG/DL (0.55-1.30); GLOMERULAR FILTRATION RATE 89.6 (>39); POTASSIUM SERUM 4.3 MMOL/L (3.5-5.1); SODIUM LEVEL 141.0 MMOL/L (136-145)
[2025-03-07 14:41] LABS: FREE T4 1.19 NG/DL (0.89-1.76)
[2025-03-07 14:45] LABS: ESTIMATED AVERAGE GLUCOSE 123.0 MG/DL (60-110)
== END ==
LOC: M SFHCADAM 10:37
PROVIDERS: ATTEND Physician Assistant
DX: I10 Essential (primary) hypertension (principal); E11.9 Type 2 diabetes mellitus without complications; E03.9 Hypothyroidism, unspecified